=== PATIENT | male | born 1995 | race Caucasian/White ===

== ENCOUNTER 2023-09-14 18:17 | Emergency (ER) | payer OTHER, SELFPAY ==
[2023-09-14] VITALS (8 sets, daily range): BP systolic 116–146; BP diastolic 78–119
--- NOTE | 2023-09-14 18:28 | ED.GENMED ---
History of Present Illness
General
Chief Complaint: Seizure
Source: patient and family (Mother)
Exam Limitations: none
Time Seen by Provider: 09/14/23 18:18
History of Present Illness
History of Present Illness:
27-year-old male found by his mother in his room, unresponsive, frothing at the mouth. Was found on the floor. She heard a thump. He slowly became more awake over time. Patient has a remote history of 1 seizure about 4 years ago. Was on
Adderall at that time. Is currently on Xanax 2 mg twice daily. Has an appointment tomorrow to refill his prescription but has been low on meds and has been using less over the last week. He is not sure he took any Xanax today. Denies any other
complaints at this time.
Past History
Past History
ED Past Medical History: Psychiatric (Anxiety)
Review of Systems
Review of Systems
All Other Systems: Not applicable
Respiratory: Reports no symptoms
Cardiac: Reports no symptoms
Phy Exam
Physical Exam
Physical Exam:
GENERAL: Alert and oriented in no apparent distress. No signs of scalp trauma
EYE: Orbits normal.
NECK: Supple, nontender
ENT: Pharynx without erythema
CARDIAC: Tachycardic and regular no murmur
LUNGS: Clear breath sounds,normal
ABDOMEN: Soft, without focal tenderness or distention
NEUROLOGICAL: Alert and oriented , cranial nerves II through XII intact. Speech normal. Moderately tremulous
SKIN: Warm and dry, no rash or lesion, no discoloration, skin intact.
MUSCULOSKELETAL: No edema,no deformity.Good color
PSYCH: Normal and appropriate interaction.
Course
Orders/Labs/Results
Orders:
Orders
09/14/23 18:27
CT Head W/o Iv Contrast Urgent
Comment:
Reason For Exam: Seizure. Possible head injury
Cardiac Monitoring- Treatment ONCE
IV Insert/Care/Rem.- Treatment PRN
0.9% Sodium Chloride 1000 ml [Nss] 1,000 ml IV BOLUS
Lorazepam [Ativan] 1 mg IV NOW STA
Pulse Ox/cont/shift [RESP] Stat
Quantity: 1
09/14/23 18:28
Electrocardiogram (*1) Stat
Reason for Study: Other
Other Reason for Exam: neuro symptoms
EKG- Treatment ONCE
09/14/23 18:44
Basic Metabolic Panel Urgent
Complete Blood Count/With Diff Urgent
09/14/23 19:31
Alprazolam [Xanax] 2 mg PO NOW STA
Abnormal Lab Results
09/14/23 09/14/23
18:29 18:44
RBC 4.37 L 10^6/uL
(4.70-6.10)
MCV 100.5 H fL
(80.0-94.0)
MCH 37.3 H pg
(27.0-31.0)
MCHC 37.1 H g/dL
(33.0-37.0)
MPV 10.6 H fL
(7.4-10.4)
Abs Immat Gran (auto) 0.1 H 10^3/uL
(0-0.05)
Absolute Monos (auto) 0.9 H 10^3/uL
(0.1-0.6)
Immature Gran % 1.0 H %
(0-0.5)
Monocytes % 9.6 H %
(1.7-9.3)
Sodium 131 L mmol/L
(135-145)
Chloride 96 L mmol/L
(98-107)
Carbon Dioxide 17 L mmol/L
(22-30)
BUN 8 L mg/dl
(9-20)
Glucose 151 H mg/dl
(70-99)
POC Glucose 150 H mg/dl
(70-99)
09/14/23 18:44
09/14/23 18:44
Vital Signs
Initial and Last Documented VS:
Initial Vital Signs
Pulse Resp BP Pulse Ox
118 22 146/119 96
09/14/23 18:23 09/14/23 18:23 09/14/23 18:23 09/14/23 18:23
Last Documented Vital Signs
Pulse Resp BP Pulse Ox
123 25 131/92 96
09/14/23 20:15 09/14/23 20:15 09/14/23 20:00 09/14/23 20:15
MDM/Problems Addressed
Differential Diagnosis Includes:
Patient has been tapering Xanax over the last week because of prescription issues. He has been on significant doses chronically. Denies other alcohol or drug issues. Likely this was a benzodiazepine withdrawal seizure. We will check electrolytes
CT of the head because of possible trauma or unknown trauma Ativan monitoring and observation at this time
*Radiology
Radiology exam reviewed: radiology read reviewed (neg)
*Pulse Oximetry
Patient hypoxic: no
*EKG
Interpreted by ED Provider?: Yes
Interpretation: abnormal
Comparison EKG: no comparison EKG present
Heart Rate: 111
Rate: tachycardiac
Rhythm: sinus
[place]: normal axis
Interval: normal interval
QRS Pattern: normal QRS
Ischemia: no ischemia
*Manager Appointment Interpretation
Rate: tachycardiac
Interpretation: normal
Heart Rate: 110
Rhythm: sinus
*Critical Care Note
Total Time (30-74mins, 75-104mins- exclusive of procedures): Not Applicable
Update Note
Update Note:
1929... Patient doing well. Head CT negative. Mildly tachycardic but very stable. Tremors are resolved. All likely benzo withdrawal. Await labs. Continued observation. Will give him his regular dose of Xanax for now. Family updated.
2106... Patient is remained medically stable and nontoxic. Fully awake and alert. No further seizures. Heart rate improved. Blood pressure improved. Weight down to 110. I did reluctantly report this to the state however reported as a provoked
seizure because of benzo withdrawal. Patient and mom were made aware of this
ED Attending Note
-
Portions of this chart may have been created with voice recognition software.� Occasional wrong word or��sound alike� substitutions may have occurred due to the inherent limitations of voice recognition software.
Discharge Plan
Departure
Patient Disposition: Home (Routine Discharge)
Date of Disposition: 09/14/23
Time of Disposition: 21:07
Patient with high blood pressure during this ER visit?: Yes
Discharge Problem:
Seizure, Secondary to benzodiazepine withdrawal, Mild hyponatremia, Mild hyperglycemia
Instructions: Seizures, Adult (DC), BLOOD PRESSURE
Prescriptions:
No Action
alprazolam 1 mg Tablet
2 mg PO BID
Patient Comments:
09/14/2023: last filled 08/09/23, 120 tabs for 30 days from [facility]#[id number]
albuterol sulfate 90 mcg/actuation Hfa Aerosol Inhaler
2 puff INHALATION R Q4HPRN PRN (Reason: sob/wheezing)
Referrals:
UNKNOWN - PT DOES,NOT KNOW [Family Provider] -
Activity Restrictions/Additional Instructions:
Do not drive until cleared by your physician
Discussed with them tomorrow possibly a very slow taper of your Xanax and also discussed with your psychiatrist
Get a repeat BMP done in 1 to 2 weeks
Interventions
Interventions:
*Neglect/Abuse Screening Last Done: 09/14/23 18:31
ED- Cardiac Assessment Last Done: 09/14/23 18:19
ED- Neurological Assessment Last Done: 09/14/23 18:30
ED- Pulmonary Assessment Last Done: 09/14/23 18:19
Discharge Date and Time
Print Language: UKRAINIAN
[2023-09-14 18:30] LABS: Glucose - Point of Care 150 mg/dl (70-99)
[2023-09-14] MEDS: ATIVAN 1 MG IV (18:36)
[2023-09-14] MEDS: NSS 1000 IV (18:39)
[2023-09-14 19:37] LABS: % Basophils 0.9 % (0-2); % Eosinophils 1.2 % (0-6); % Monocytes 9.6 % (1.7-9.3); % Neutrophils 62.3 % (42.2-75.2); Absolute Basophils 0.1 10^3/uL (0-0.2); Absolute Eosinophils 0.1 10^3/uL (0-0.7); Absolute Immature Granulocytes 0.1 10^3/uL (0-0.05); Absolute Lymphocytes 2.3 10^3/uL (1.2-3.4); Absolute Monocytes 0.9 10^3/uL (0.1-0.6); Absolute Neutrophils 5.7 10^3/uL (1.4-6.5); Hematocrit 43.9 % (39.0-52.0); Hemoglobin 16.3 g/dL (13.0-18.0); Mean Corp Hgb Conc. 37.1 g/dL (33.0-37.0); Mean Corpuscular Hgb 37.3 pg (27.0-31.0); Mean Corpuscular Volume 100.5 fL (80.0-94.0); Mean Platelet Volume 10.6 fL (7.4-10.4); Nucleated Red Blood Cells % 0 % (-); Platelet Count 263 10^3/uL (130-400); Red Blood Cell Count 4.37 10^6/uL (4.70-6.10); White Blood Cell Count 9.2 10^3/uL (4.8-10.8)
[2023-09-14 19:40] LABS: Blood Urea Nitrogen 8 mg/dl (9-20); Calcium 9.7 mg/dl (8.4-10.2); Carbon Dioxide 17 mmol/L (22-30); Chloride 96 mmol/L (98-107); Glucose 151 mg/dl (70-99); Potassium 4.7 mmol/L (3.5-5.1); Sodium 131 mmol/L (135-145); eGFR > 60.00
[2023-09-14] MEDS: XANAX 2 MG PO (20:14)
== END 2023-09-14 21:24 | disposition home or self-care (01) ==
LOC: EMR 18:17
PROVIDERS: EMERGENCY PHYSICIAN Emergency Medicine
DX: G40.89 Other seizures (principal); F13.239 Sedative, hypnotic or anxiolytic dependence with withdrawal, unspecified; E87.1 Hypo-osmolality and hyponatremia; R73.9 Hyperglycemia, unspecified; F41.9 Anxiety disorder, unspecified; Z79.899 Other long term (current) drug therapy
CPT/HCPCS: 99284; 96374; 96361; 70450; 80048; 82962; 85025; 93005

== ENCOUNTER 2024-02-13 01:37 | Emergency (ER) | payer OTHER, SELFPAY ==
[2024-02-13 01:39] VITALS: BP 152/115
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
[2024-02-13] MEDS: ATIVAN 1 MG PO ×2 (03:27→06:19)
== END 2024-02-13 06:33 | disposition home or self-care (01) ==
LOC: EMR 01:37
PROVIDERS: EMERGENCY PHYSICIAN Student in an Organized Health Care Education/Training Program
DX: F10.129 Alcohol abuse with intoxication, unspecified (principal); R03.0 Elevated blood-pressure reading, without diagnosis of hypertension
CPT/HCPCS: 99283

== ENCOUNTER 2024-04-23 18:26 | Emergency (ER) | payer OTHER, SELFPAY ==
[2024-04-23 18:36] VITALS: BP 165/122
--- NOTE | 2024-04-23 21:59 | ED.GENMED ---
History of Present Illness
General
Chief Complaint: Prescription Refill
Source: patient
Exam Limitations: none
Time Seen by Provider: 04/23/24 19:35
Nursing documentation reviewed up to this point in time: agreed with
History of Present Illness
History of Present Illness:
Patient to ED accompanied by mother. States he is taking Xanax 1mg 4x daily for history of anxiety. He called his pharmacy today to renew rx but was told by pharmacy that pharmacy is no longer filling rx from his provider. He is concerned that he
will not be able to get medication, is concerned for withdrawal. He has 2 doses left for tomorrow.
Past History
Past History
ED Past Medical History: Psychiatric (Anxiety)
Review of Systems
Review of Systems
Allergies reviewed?: Yes
All Other Systems: ROS reviewed and negative except as documented in HPI and ROS
Constitutional: Reports no symptoms
Musculoskeletal: Reports no symptoms
Skin: Reports no symptoms
Neurological: Reports no symptoms
Psychiatric: Reports no symptoms
Phy Exam
General Physical Exam
General Presentation: well appearing and no apparent distress
General age: appears stated age
General Skin: warm and dry
General Habitus: normal
Neurological Exam
Neurological Exam: alert, oriented x3 and CN II-XII intact
Musculoskeletal Exam
Musculoskeletal Exam: full ROM
Skin Exam
Skin Exam: normal color, warm/dry and no rash
Psychiatric Exam
Psychiatric Exam: normal mood/affect
Course
Vital Signs
Initial and Last Documented VS:
Initial Vital Signs
Temp Pulse Resp BP Pulse Ox
98.4 F 106 16 165/122 97
04/23/24 18:36 04/23/24 18:36 04/23/24 18:36 04/23/24 18:36 04/23/24 18:36
Last Documented Vital Signs
Temp Pulse Resp BP Pulse Ox
98.4 F 106 16 165/122 97
04/23/24 18:36 04/23/24 18:36 04/23/24 18:36 04/23/24 18:36 04/23/24 18:36
*Critical Care Note
Total Time (30-74mins, 75-104mins- exclusive of procedures): Not Applicable
Update Note
Update Note:
Discussed with mother on need to follow up with his prescribing provider, and that i will not be able to refill his rx from the ED. He will call provider in AM. I gave rx for 4 additional doses.
ED Attending Note
-
Portions of this chart may have been created with voice recognition software.� Occasional wrong word or��sound alike� substitutions may have occurred due to the inherent limitations of voice recognition software.
Discharge Plan
Departure
Patient Disposition: Home (Routine Discharge)
Date of Disposition: 04/23/24
Time of Disposition: 19:52
Patient with high blood pressure during this ER visit?: No
Condition: Good
Covid-19: Not Applicable
Discharge Problem:
Encounter for medication refill
Prescriptions:
New
alprazolam [Xanax] 1 mg tablet
1 mg PO TID PRN (Reason: anxiety) Qty: 4 0RF
No Action
alprazolam 1 mg Tablet
2 mg PO BID
Patient Comments:
09/14/2023: last filled 08/09/23, 120 tabs for 30 days from [id number]
albuterol sulfate 90 mcg/actuation Hfa Aerosol Inhaler
2 puff INHALATION R Q4HPRN PRN (Reason: sob/wheezing)
lorazepam [Ativan] 1 mg tablet
1 mg PO BID PRN (Reason: alcohol withdrawal) Qty: 7 0RF
Activity Restrictions/Additional Instructions:
Follow up with your healthcare provider in the AM
Interventions
Interventions:
*Risk Screen - Suicide Last Done: 04/23/24 20:01
*Neglect/Abuse Screening Last Done: 04/23/24 20:01
*Nursing Disposition Last Done: 04/23/24 20:01
Discharge Date and Time
Discharge Date/Time: 04/23/24 20:02
Print Language: HEBREW
== END 2024-04-23 20:02 | disposition home or self-care (01) ==
LOC: EMR 18:26
PROVIDERS: EMERGENCY PHYSICIAN Emergency Medicine
DX: Z76.0 Encounter for issue of repeat prescription (principal); F41.9 Anxiety disorder, unspecified; Z79.899 Other long term (current) drug therapy
CPT/HCPCS: 99282

== ENCOUNTER 2024-10-07 23:51 | Inpatient (IN) | payer OTHER, SELFPAY ==
[2024-10-07] VITALS (11 sets, daily range): BP systolic 109–235; BP diastolic 79–164; BMI 30.5
[2024-10-07 20:19] LABS: Hematocrit 43.3 % (39.0-52.0); Hemoglobin 15.7 g/dL (13.0-18.0); Mean Corp Hgb Conc. 36.3 g/dL (33.0-37.0); Mean Corpuscular Volume 101.9 fL (80.0-94.0); Nucleated Red Blood Cells % 0 % (-); Platelet Count 249 10^3/uL (130-400); Red Cell Dist. Width 12.8 % (11.5-14.5)
[2024-10-07 20:45] LABS: AST (SGOT) 231 U/L (17-59); Albumin 5.1 g/dl (3.5-5.0); Alkaline Phosphatase 67 U/L (38-126); Blood Urea Nitrogen 9 mg/dl (9-20); Calcium 9.2 mg/dl (8.4-10.2); Carbon Dioxide 16 mmol/L (22-30); Chloride 93 mmol/L (98-107); Estimated Creatinine Clearance > 125 ml/min; Glucose 168 mg/dl (70-99); Potassium 4.6 mmol/L (3.5-5.1); Sodium 128 mmol/L (135-145); Total Protein 8.7 g/dl (6.3-8.2); eGFR > 60.00
[2024-10-07] MEDS: VALIUM INJECTION 10 MG IV ×2 (20:56→23:10)
[2024-10-07] MEDS: NSS 1000 IV (20:57)
[2024-10-07 21:16] LABS: ALT (SGPT) 102 U/L (0-50)
[2024-10-07 21:59] LABS: Magnesium 1.1 mg/dl (1.6-2.3)
--- NOTE | 2024-10-07 22:23 | ED.GENMED ---
History of Present Illness
General
Chief Complaint: Seizure
Source: patient and family (Mom who is present at the bedside)
Exam Limitations: none
Time Seen by Provider: 10/07/24 22:05
History of Present Illness
History of Present Illness:
Note:
CHIEF COMPLAINT(S)
Seizure following alcohol withdrawal.
HISTORY OF PRESENT ILLNESS
The patient is a 28-year-old male who presented to the emergency department after experiencing a seizure attributed to alcohol withdrawal. The patient has a history of heavy alcohol use, with the last consumption occurring three days prior.
According to the patients mother, the patient had a seizure in the bathroom at approximately 8:00 PM after she heard a crash and found him on the floor. The patient has a history of previous seizures following similar heavy alcohol use about a year
ago. During the current episode, the patients heart rate was reported to be 160 beats per minute. The patient did not sustain significant injury during the seizure, aside from likely biting his tongue.
The patient has not been receiving regular treatment for alcohol use disorder and is resistant to receiving help. His mother expresses significant concern about his health and is unsure how to provide support. The patient is presently experiencing
electrolyte imbalances, particularly low sodium levels, which require correction via intravenous fluids and magnesium supplementation. There is significant concern regarding the risk of recurrent seizures and potential cardiac complications if
further medical intervention is not promptly initiated.
CHRONIC MEDICAL CONDITIONS SIGNIFICANTLY AFFECTING CARE
Chronic alcohol use disorder with associated risk for withdrawal seizures.
SOCIAL DETERMINANTS AFFECTING HEALTH
The patient lives with his mother who feels overwhelmed by his alcohol dependence and is unable to provide necessary support to help him manage his condition safely.
SOCIAL HISTORY
The patient is a heavy alcohol consumer and has been for an extended period. There is no discussion of other substance use. The patient works at [employer].
PHYSICAL EXAM
General: Alert, anxious, in moderate distress secondary to withdrawal symptoms.
Skin: Warm, dry. No signs of trauma.
Head: Normocephalic, atraumatic. Likely bit the tongue during the seizure.
Neck: Supple, trachea midline.
Eye, Ears, Nose, Mouth, and Throat: Oral mucosa moist.
Cardiovascular: Tachycardic noted initially with heart rate at 160 beats per minute, normal peripheral perfusion.
Respiratory: Respirations are non-labored.
Gastrointestinal: Abdomen nondistended.
Back: Normal range of motion, normal alignment.
Musculoskeletal: Normal range of motion, normal strength.
Neurological: Alert and oriented to person, place, time, and situation. No focal neurological deficit observed post-seizure.
Psychiatric: Anxious mood, appropriate affect given the situation. Cooperative during the exam.
PLAN
1. Admit the patient for inpatient management of alcohol withdrawal to prevent further seizures and correct electrolyte imbalances.
2. Initiate intravenous fluids with magnesium and sodium to address electrolyte imbalances.
3. Discuss inpatient detoxification and rehabilitation options.
4. Provide education about the risks associated with unmanaged alcohol withdrawal.
5. Engage social work and crisis intervention team for support and potential referral to alcohol addiction services.
6. Observe patient closely due to the high risk of subsequent seizures and potential cardiac events.
7. The patient cannot be discharged alone due to recent administration of benzodiazepines; medical hold until safely discharged with a responsible adult.
8. Monitor vital signs and neurological status closely.
DIFFERENTIAL DIAGNOSIS
The Differential Diagnosis includes, in no particular order and is not limited to:
1. Alcohol withdrawal seizure
2. Epileptic seizure
3. Hypoglycemic seizure
4. Electrolyte imbalance seizure
5. Infection-related seizure
6. Trauma-induced seizure
7. Drug-induced seizure (non-alcohol substances)
8. Tumor-related seizure
9. Intracranial bleed
10. Stress-related non-epileptic seizure
EKG
My independent EKG interpretation is:
- Time of EKG is not specified.
- Rhythm: Sinus tachycardia.
- Heart rate: 128 beats per minute.
- Intervals: Normal OR interval, QRS duration, and QT interval.
- [place]: Normal axis.
- Abnormalities: No evidence of acute ischemia.
- Comparison: Similar morphology to previous EKG dated September 14, 2011.
Disposition:
SUMMARY OF ENCOUNTER
The patient, a 28-year-old male with a history of alcoholism, presented to the emergency department after experiencing a seizure at home. The seizure occurred three days after the patient stopped drinking alcohol in an attempt to detoxify on his
own. The patients mother, found him seizing shortly after arriving home from work. The patient confirmed not having a head injury and reported using alprazolam to help mitigate withdrawal symptoms. Upon arrival at the emergency department, the
patient received multiple doses of diazepam, and seizure precautions were established due to his high Modified Severity Seizure Scale (DAMON) score. -[facility] was contacted but was unavailable until 7 a.m. The patient is resistant to seeking help for
his alcoholism but agreed to be admitted to the hospitalist service for management of withdrawal symptoms, seizures, hypomagnesemia, and hyponatremia.
DISPOSITION
Admit
ASSESSMENT
Seizure likely attributed to alcohol withdrawal, compounded by underlying electrolyte imbalances of hypomagnesemia and hyponatremia.
EMERGENCY TREATMENTS ADMINISTERED
Multiple doses of diazepam were administered to manage the patient�s seizure activity.
PLAN
1. Admit the patient to the hospitalist service for inpatient management of alcohol withdrawal and seizure control.
2. Correct electrolyte imbalances, including addressing hypomagnesemia and hyponatremia, with appropriate intravascular supplementation.
3. Implement seizure precautions and closely monitor neurological status.
4. Facilitate discussions with the social work team regarding potential placement and follow-up services for alcohol withdrawal and rehabilitation once the patient is medically stabilized.
5. Provide continued support and address the patients reluctance to engage in treatment for alcohol use disorder.
MEDICATION RECONCILIATION
1. Alprazolam as reported by the patient to mitigate withdrawal symptoms.
2. Diazepam was administered in the emergency department for seizure management.
MEDICAL DECISION MAKING
-Number and Complexity of Problems Addressed: Chronic conditions affecting care�Chronic alcohol use disorder, alcohol withdrawal, hypomagnesemia, hyponatremia. Differential diagnosis includes alcohol withdrawal seizure, epileptic seizure,
hypoglycemic seizure, and others as detailed.
-Data:
Category 2
Input was provided by the patients mother as an independent historian regarding the circumstances of the seizure and the patient�s recent alcohol use history.
Category 3
Contact with -[facility] for potential follow-up placement and rehabilitation options, although initially unavailable.
-Risk: The patient was admitted due to the significant risk of complications associated with continued alcohol withdrawal, electrolyte imbalances, and potential for further seizures. Social determinants of health significantly affecting care, as the
patients current living situation and reluctance to seek help pose barriers to effective management and continued stability post-discharge.
DIAGNOSIS
- Alcohol withdrawal seizure (ICD-10: F10.232)
- Hypomagnesemia (ICD-10: E61.2)
- Hyponatremia (ICD-10: E87.1)
Past History
Past History
ED Past Medical History: Psychiatric (Anxiety)
Phy Exam
Physical Exam
Physical Exam:
.
Scores
Withdrawal Assessment of Alcohol
Withdrawal Assessment Completed?: Yes
Nausea and Vomiting: Mild nausea with no vomiting
Tactile Disturbances: Very mild itching, pins and needles, burning or numbness
Tremor: Moderate, with patient's arms extended
Auditory Disturbances: Not present
Paroxysmal Sweats: Beads of sweat obvious on forehead
Visual Disturbances: Not present
Anxiety: Moderately anxious, or guarded, so anxiety is inferred
Headache, Fullness in Head: Not present
Agitation: Moderately fidgety and restless
Orientation and clouding of sensorium: Cannot do serial additions or is uncertain about date
Total CIWA Score: 19
Alcohol Withdrawal Medication Recommendation: Equal to MSAS Score 8-11. Lorazepam 1-2mg IV NOW & re-assess q1hr
Course
Orders/Labs/Results
Orders:
Orders
10/07/24 20:13
EKG [Electrocardiogram (*1)] Urgent
Reason for Study: Tachycardia
EKG- Treatment ONCE
10/07/24 20:14
Alcohol Urgent
Complete Blood Count/With Diff Routine
Comprehensive Metabolic Panel Urgent
Magnesium Urgent
Comment: ADD ON
Phosphorus Urgent
Comment: ADD ON
10/07/24 20:52
diazePAM [Valium Injection] 10 mg .ROUTE .STK-MED ONE
10/07/24 20:53
diazePAM [Valium Injection] 10 mg IM NOW STA
10/07/24 20:55
diazePAM [Valium Injection] 10 mg IV NOW STA
10/07/24 20:57
0.9% Sodium Chloride 1000 ml [Nss] 1,000 ml IV BOLUS
10/07/24 21:46
Add On- LAB Urgent
Comments:: add on magnesium and phosphorous to comp
Tests Added?: magnesium and phosphorous to comp
10/07/24 22:10
0.9% Sodium Chloride 500 ml [Nss] 500 ml IV BOLUS
Magnesium Sulfate 1 G/D5w [Magnesium Sulfate] 1 gm in 100 ml IV NOW
10/07/24 23:00
0.9% Sodium Chloride 1000 ml [Nss] 1,000 ml Mvi, Adult [Multivitamin] 10 ml Thiamine Injection 100 mg IV 250 mls/hr
10/07/24 23:03
diazePAM [Valium Injection] 10 mg .ROUTE .STK-MED ONE
10/07/24 23:07
Admit/Transfer Patient As Directed
Co-Sign Provider:
Level of Care: Inpatient admission
Assign to:: ICU
Physician / Group: Frandy
Diagnosis: Alcohol Withdrawal Seizures
Reason for Hospitalization: Alcohol Withdrawal Seizures
Expected length of stay greater than two midnights?: Yes
ELOS- Estimated Length of Stay in days: 4
I certify the patient meets the requirements for IP care: Yes
PRN Pain Medication Management As Directed
May give lesser potent ordered pain med per pt: Yes
preference::
Protocol:: Medication orders for pain may be administered in a
manner that supports deferring to patient preference
when the pt is:
- Requesting an ordered lesser potent pain medication.
Least to most potent pain medications are defined
as: acetaminophen < NSAID < tramadol < opioids
(morphine, oxycodone, hydromorphone).
- Requesting a lesser dose of the same medication IF
ORDERED.
- Requesting a less intrusive route of administration
if both routes are prescribed by the provider (PO <
IV).
10/07/24 23:08
Code Status As Directed
Resuscitation Status: Full Code
10/07/24 23:18
Propofol 1,000,000 Mcg/100 ml [Diprivan] 1,000,000 mcg in 100 ml .ROUTE .STK-MED
10/07/24 23:26
CT Head W/o Iv Contrast Urgent
Comment:
Reason For Exam: persistant seizure
CR Chest Portable - 1 View Urgent
Comment:
Reason For Exam: tube placement
Reason Study Needs to be Portable: Unable to Transport
10/07/24 23:31
Triglycerides Routine
Comment: baseline levels with propofol infusion
Propofol 1,000,000 Mcg/100 ml [Diprivan] 1,000,000 mcg in 100 ml IV NOW
Indication:: Light Sedation
Begin Infusion:: Now
Goal:: RASS 0 to -2
Maximum dose in mcg/kg/min:: 50
Initial dose based on RASS:: Yes
If RASS is:: +1 or pt hemodynamically unstable (SBP < 90mmHg), initiate at 10 mcg/kg/min
If RASS is:: +2, initiate at 20 mcg/kg/min
If RASS is:: greater than or equal to +3, initiate at 30 mcg/kg/min
Titration Instructions:: Titrate by 5-10 mcg/kg/min every 5 minutes until RASS 0 to -2 achieved.
Taper Instructions:: If RASS is at or below goal for 4 consecutive hours decrease infusion by
Taper Instructions:: 5-10 mcg/kg/min every 2 hours to off.
Over-sedation Instructions:: If CPOT 0-2 (at goal) AND RASS -3 to -5 (below goal) decrease sedative by
Over-sedation Instructions:: 50% first. If pain score remains at goal and RASS remains below goal in
Over-sedation Instructions:: 1 hour, decrease opioid infusion by 50%.
Notify provider:: immediately if patient exhibits signs/symptoms of propofol-related
Notify provider:: infusion syndrome.
Additional Instructions:: Patient MUST be mechanically ventilated and MUST receive analgesia.
10/07/24 23:37
ABG [Arterial Blood Gas] Urgent
%Oxygen/Room Air: intubated
10/07/24 23:38
Khan Placement- Treatment ONCE
Reason for insertion: I&O's Critical Care
Abnormal Lab Results
10/07/24
20:14
RBC 4.25 L 10^6/uL
(4.70-6.10)
MCV 101.9 H fL
(80.0-94.0)
MCH 36.9 H pg
(27.0-31.0)
Absolute Monos (auto) 0.8 H 10^3/uL
(0.1-0.6)
Monocytes % 12.1 H %
(1.7-9.3)
Sodium 128 L mmol/L
(135-145)
Chloride 93 L mmol/L
(98-107)
Carbon Dioxide 16 L mmol/L
(22-30)
Glucose 168 H mg/dl
(70-99)
Magnesium 1.1 L mg/dl
(1.6-2.3)
Total Bilirubin 3.1 H mg/dl
(0.2-1.3)
AST 231 H U/L
(17-59)
ALT 102 H U/L
(0-50)
Total Protein 8.7 H g/dl
(6.3-8.2)
Albumin 5.1 H g/dl
(3.5-5.0)
10/07/24 20:14
10/07/24 20:14
Vital Signs
Initial and Last Documented VS:
Initial Vital Signs
BP
146/99
10/07/24 20:10
Last Documented Vital Signs
Pulse Resp BP Pulse Ox
106 19 136/98 96
10/07/24 22:45 10/07/24 22:45 10/07/24 22:00 10/07/24 22:45
Procedures
Moderate Sedation
ASA Risk Score: Class I
Chart and allergies reviewed: Yes
Consent for anesthesia obtained: No
Time out completed (validating right patient & procedure): Yes
History of difficult intubation: No
Airway free of obstruction: Yes
Patient has a gag reflex: Yes
Patient is able to open mouth: Yes
Patient has no dentures: Yes
Patient has no loose teeth: Yes
Medication administered by Provider during Moderate Sedation: N/A-Meds administered by RN (see MAR)
Intubations
Procedure completed by: myself
Method of Intubation: glidescope
Tube size (cm): 8.0
Placement confirmed by: auscutation, CXR and direct visualization
Breath sounds after intubation: equal
Intubation complications: no complications
*Pulse Oximetry
SaO2: 98
Oxygen Mode of Delivery: Room air
Patient hypoxic: no
*Critical Care Note
Total Time (30-74mins, 75-104mins- exclusive of procedures): 37 (Critical care statement: A total of 37 minutes of critical care time was provided for this patient. This time is separate from time utilized to perform the aforementioned documented
procedures. Aggregate critical care time includes only time during which I was engaged in work directl)
Update Note
Update Note:
[facility] was contacted and we were told they would not have anyone available until morning
11:15 PM: Pt seized again. Seizure refractory to meds. Decision to intubate in presence of mom who verbally consented. Intubation successful, propofol drip initiated
ED Attending Note
-
Portions of this chart may have been created with voice recognition software.� Occasional wrong word or��sound alike� substitutions may have occurred due to the inherent limitations of voice recognition software.
Discharge Plan
Departure
Patient Disposition: Admit
Date of Disposition: 10/07/24
Time of Disposition: 22:51
Admit to: ICU
Presentation/result/management discussed w/ accepting MD/DO: Hospitalist
Condition: Critical
Discharge Problem:
Alcohol withdrawal, Seizures, Acute hyponatremia, Hypomagnesemia, Status epilepticus
Prescriptions:
No Action
alprazolam [Xanax] 1 mg tablet
1 mg PO TID PRN (Reason: anxiety) Qty: 4 0RF
Referrals:
TYLER LAUGHLIN [Other]
Interventions
Interventions:
*Risk Screen - Suicide Last Done: 10/07/24 20:20
*General Assessment Last Done: 10/07/24 20:20
*Neglect/Abuse Screening Last Done: 10/07/24 20:20
*ED- Fall Risk Assessment Last Done: 10/07/24 20:20
*ED COVID-19 Vaccine History Last Done: 10/07/24 20:20
ED- Cardiac Assessment Last Done: 10/07/24 20:41
ED- Neurological Assessment Last Done: 10/07/24 20:41
ED- Pulmonary Assessment Last Done: 10/07/24 20:41
Discharge Date and Time
Print Language: KAZAKH
[2024-10-07] MEDS: MAGNESIUM SULFATE 100 IV (22:54)
[2024-10-07] MEDS: MULTIVITAMIN 1011 ML IV (23:15)
[2024-10-07] MEDS: MULTIVITAMIN 1011 MG IV (23:15)
--- NOTE | 2024-10-07 23:36 | HPS.HSE ---
Family Physician
-
Family Physician: TYLER LAUGHLIN
Chief Complaint
-
Seizure
History of Present Illness
Patient is a 28y M with PMH significant for alcohol use disorder and chronic benzodiazepine dependence who presents to ED for evaluation after witnessed seizure at home this evening. History obtained from patient and his mother at the bedside.
Patient states that he has been on Xanax 1mg QID for 5-10 years. He has also been drinking to excess - especially for the past year or so. He drinks about 3/4 bottle of vodka per day. His last drink was 2 days ago. He states that he is committed
to quitting 'on my own'. He notes that he has also been weaning off of his Xanax. He has decreased from his long-standing QID dosing to two or three times daily.
During my evaluation, patient experienced another tonic-clonic seizure with evident mucosal / tongue injury and bloody secretions from the mouth. He was given IV Valium.
Discussion with ED physician and mother at bedside. Decision made to intubate and sedate the patient given recurrent seizure activity despite BZDs received thus far.
Medical History
Past Medical History
Past Medical History: Reports Other
Additional Past Medical History:
Alcohol Use Disorder
Chronic Benzodiazepine Dependence
Anxiety / Depression
Past Surgical History: Reports None
Social History
Tobacco: Non-smoker
Alcohol: Daily (3/4 bottle of vodka daily. )
Drug: None
Family History
Family History: Not pertinent
Allergies / Home Medications
Allergies reflects when Allergies were last updated in [facility].
Home Medications with original date entered in [facility]
Allergy/Medication List:
Allergies
Allergy/AdvReac Type Severity Reaction Status Date / Time
No Known Allergies Allergy Verified 10/07/24 20:26
Home Medications
alprazolam 1 mg tablet (Xanax) 1 mg PO TID PRN anxiety #4 tabs 04/23/24
Review of Systems
-
History Source: Patient
A 12 point ROS was completed and negative except as noted: Yes
Constitutional: Reports Fatigue; Denies Fever or Chills
Respiratory: Denies Cough or Trouble Breathing
Cardiac: Denies Chest Pain or Palpitations
Abdomen/GI: Denies Abdominal Pain, Nausea, Vomiting or Diarrhea
Neurological: Reports Other (Seizure, tremulous)
Psych: Reports Anxiety
Physical Exam
Vital Signs
Vital Signs
Pulse Resp BP Pulse Ox
106 19 136/98 96
10/07/24 22:45 10/07/24 22:45 10/07/24 22:00 10/07/24 22:45
Physical Exam
General: Other (Patient initially awake and alert and able to contribute to history. Then developed active seizure. Now intubated / sedated in the ED.)
HEENT: Other (Thick neck. ETT and OGT in place. Few bloody secretions / tongue laceration.)
Respiratory: Other (Coarse breath sounds throughout.)
Cardiac: S1/S2 and Tachycardia; No Murmur
GI: Soft, Non Tender, Non Distended and Normal Bowel Sounds
Musculoskeletal: No Clubbing, No Cyanosis and No Edema
Laboratory Results
-
10/07/24 20:14
10/07/24 20:14
Laboratory Results
Total Bilirubin 3.1 mg/dl (0.2-1.3) H 10/07/24 20:14
AST 231 U/L (17-59) H 10/07/24 20:14
ALT 102 U/L (0-50) H 10/07/24 20:14
Alkaline Phosphatase 67 U/L (38-126) 10/07/24 20:14
Impression/Plan
-
A/P: Patient is a 28y M with PMH significant for alcohol use disorder and chronic BZD dependence who presents to ED for evaluation of seizure activity at home,
Alcohol Withdrawal Seizure
Alcohol Use Disorder
Chronic Benzodiazepine Dependence
- Admit to ICU for further evaluation and treatment.
- Seizure at home and multiple seizures here in the ED despite IV BZD doses.
- Intubated and started on Propofol infusion.
- Monitor closely in ICU on Propofol.
- BZD PRN for breakthrough seizure activity.
- Check CT head for completeness.
- Sterile Processing Manager and Psychiatry consulted.
- IVF support / monitor and replace electrolytes as needed.
- Thiamine, folate, MVI, etc.
- Patient would likely benefit from inpatient rehabilitation options if he is amenable.
Aspiration
- Coarse breath sounds on exam in the ED after most recent seizure with suspected aspiration.
- Cover with empiric abx for now.
- Follow temperature curve, oxygenation, CXR, etc.
DVT Prophylaxis: SCDs
Code Status: Full
[2024-10-07] MEDS: DIPRIVAN 100 IV (23:40)
[2024-10-07 23:51] LABS: Glucose - Point of Care 188 mg/dl (70-99)
[2024-10-07 23:58] LABS: B.E. -5.5 mmol/L; HCO3 22.0 mmol/L (21-28); O2 Saturation % 98.7 % (94-98); PCO2 49 mmHg (35-48); PO2 111 mmHg (83-108)
[2024-10-08] VITALS (95 sets, daily range): BP systolic 81–210; BP diastolic 46–142; BMI 30.8
[2024-10-08] MEDS: SUBLIMAZE 100 MCG IV (00:53)
[2024-10-08 00:59] LABS: Triglycerides 213 mg/dl (10-149)
[2024-10-08] MEDS: SUBLIMAZE 50 MCG IV ×8 (01:23→16:25)
[2024-10-08] MEDS: SUBLIMAZE 100 IV ×3 (01:32→19:12)
[2024-10-08] MEDS: ATIVAN 2 MG IV (01:46)
[2024-10-08 01:48] LABS: Hematocrit 45.1 % (39.0-52.0); Hemoglobin 16.4 g/dL (13.0-18.0); Mean Corp Hgb Conc. 36.4 g/dL (33.0-37.0); Mean Corpuscular Volume 102.7 fL (80.0-94.0); Platelet Count 226 10^3/uL (130-400); Red Cell Dist. Width 12.3 % (11.5-14.5); Urine Character Clear (Clear)
[2024-10-08] MEDS: LR 1000 IV ×4 (01:52→20:22)
[2024-10-08] MEDS: VERSED 5 MG IV ×4 (01:55→05:08)
[2024-10-08 02:05] LABS: INR 1.14; PT 14.9 Sec (11.4-14.6)
[2024-10-08 02:06] LABS: APTT 24.9 Sec (23.4-35.0)
[2024-10-08 02:11] LABS: Triglycerides 316 mg/dl (10-149)
[2024-10-08 02:17] LABS: ALT (SGPT) 103 U/L (0-50); AST (SGOT) 245 U/L (17-59); Albumin 5.0 g/dl (3.5-5.0); Alkaline Phosphatase 66 U/L (38-126); Blood Urea Nitrogen 8 mg/dl (9-20); Calcium 8.4 mg/dl (8.4-10.2); Carbon Dioxide 22 mmol/L (22-30); Chloride 97 mmol/L (98-107); Estimated Creatinine Clearance > 125 ml/min; Glucose 159 mg/dl (70-99); Magnesium 1.7 mg/dl (1.6-2.3); Potassium 4.2 mmol/L (3.5-5.1); Sodium 133 mmol/L (135-145); Total Protein 8.5 g/dl (6.3-8.2); Urine Squamous Cell >30 /LPF (Few); Urine Urothelial Cell >30 /LPF (FEW); eGFR > 60.00
[2024-10-08 02:19] LABS: Urine Red Blood Cell 16-20 /HPF (0-2)
--- NOTE | 2024-10-08 02:27 | W.PN.UPDATE ---
Update Note
Progress Note Update
spoke with Lilibeth Leonard - patient admitted for witnessed seizure in the setting of ETOH and BZD dependence and concern for withdrawal
Serene reviewed, when the tracing began 12:27 am there is right frontal seizure consisting of rhythmic delta 2.5-3 hz lasting until ~12:38 am. since then his eeg tracing has looked good. i do not agree with seizures where [facility] is detecting
them.
[2024-10-08] MEDS: MAGNESIUM SULFATE 102 GRAMS IV (02:49)
[2024-10-08] MEDS: THIAMINE INJECTION 200 MG IV ×3 (02:52→16:13)
[2024-10-08] MEDS: DIPRIVAN 100 IV ×4 (03:19→23:08)
[2024-10-08] MEDS: VALIUM INJECTION 10 MG IV ×4 (03:21→13:30)
[2024-10-08] MEDS: FLAGYL 500 MG 100 IV (04:00)
[2024-10-08] MEDS: ROCEPHIN 1000 MG IV (04:30)
[2024-10-08 05:13] LABS: Glucose - Point of Care 70 mg/dl (70-99)
[2024-10-08 05:59] LABS: Hematocrit 37.8 % (39.0-52.0); Hemoglobin 13.7 g/dL (13.0-18.0); Mean Corp Hgb Conc. 36.2 g/dL (33.0-37.0); Mean Corpuscular Volume 102.2 fL (80.0-94.0); Platelet Count 210 10^3/uL (130-400); Red Cell Dist. Width 12.8 % (11.5-14.5)
--- NOTE | 2024-10-08 06:06 | PTCARENOTE ---
on arrival to the unit pt very agitated and restless, attempting to pull at tube, PRN meds given see ZANA, SENIOR QUALITY MANAGER at bedside to assess pt, pt diaphoretic, BP elevated and HR in the 140s, intubated in ED, loya, ceribell, and OGT placed in ED, pt
currently on PROP gtt, FENT gtt, and IVF. PRN meds given for increased agitation, see MAR
[2024-10-08 06:21] LABS: Blood Urea Nitrogen 8 mg/dl (9-20); Calcium 8.0 mg/dl (8.4-10.2); Carbon Dioxide 23 mmol/L (22-30); Chloride 101 mmol/L (98-107); Estimated Creatinine Clearance > 125 ml/min; Glucose 83 mg/dl (70-99); Potassium 3.7 mmol/L (3.5-5.1); Sodium 132 mmol/L (135-145); eGFR > 60.00
--- NOTE | 2024-10-08 07:16 | CON.INTV ---
Consultation
Consultation Request
Date/Time Consultation Requested: 10/08
Date/Time Consultation Performed: 10/08
Reason for Consultation: Critical care
Medical History
-
History of Present Illness:
History obtained from the chart and also obtained from the mother at the bedside. Patient is a 28-year-old male with history of significant alcohol abuse. Mother states that patient drinks about a pint of vodka a day. The mother has to buy the
alcohol for him. When she does not buy for him in efforts to decrease alcohol, he becomes difficult to deal with at home. At 1 point, he had a seizure back in 2023, EMS was called and patient refused to go to the emergency room. Last drink was
night. Patient apparently fell, mother noted patient on the ground. Possible seizure noted at around 8 PM. Patient was brought to [facility] where upon arrival, blood pressure 146/99. Patient received multiple doses of
diazepam, eventually required intubation for airway protection, witnessed tonic-clonic seizure with tongue injury and bloody secretions in the ED. Patient mated for further management 10/07/2024
According to mother, patient takes Xanax 1 mg 1-4 times a day. He drinks about three quarters of a bottle of vodka a day. He also vapes occasionally. No other drug use.
.
PMH: Alcohol use disorder, chronic benzodiazepine use, history of anxiety/depression, history of seizure in the past and withdrawal from alcohol
Past Medical History
Past Medical History: None (See above)
Past Surgical History: None ( see above)
Social History
Tobacco: Vaping
Alcohol: Daily (Three quarters to a full bottle of vodka a day)
Drug: None
Personal: Single
Living: With Family (Lives with mother)
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
Family History
Family History: Other (2 brothers healthy. Father at age 49 from lung cancer. Grandfather from lung cancer as well)
Allergies / Home Medications
Allergies
Allergy/AdvReac Type Severity Reaction Status Date / Time
No Known Allergies Allergy Verified 10/07/24 20:26
Home Medications
�Medication �Instructions �Recorded �Confirmed �Last Taken �Type
alprazolam 1 mg tablet (Xanax) 1 mg PO TID PRN anxiety #4 tabs 04/23/24 10/07/24 10/07/24 Rx
0900
Review of Systems
-
All other systems: Negative unless noted
Vitals / Labs / Diagnostic Testing
Vital Signs
Temp Pulse Resp BP Pulse Ox
98.7 F 104 18 117/68 98
10/08/24 01:18 10/08/24 06:00 10/08/24 06:00 10/08/24 06:00 10/08/24 06:00
Lab Data
10/08/24 05:50
Laboratory Results
10/07/24 10/08/24
23:52 01:40
PT 14.9 H
INR 1.14
APTT 24.9
pH 7.26 L
pCO2 49 H
pO2 111 H
HCO3 22.0
O2 Delivery Level
Diagnostic Testing:
Physical Exam
-
HEENT: Normocephalic and Anicteric (Mild icterus)
Cardiovascular: S1/S2, Regular Rhythm, Murmur ( n), Rub (n) and Peripheral Edema (n)
Respiratory: Wheeze (n), Rales (n), Rhonchi (few), Non-Labored Respirations and Other (ET tube)
GI: Soft, Non Distended and Non Tender
Neurology: Other (Sedated. Spontaneously opens eyes. Spontaneously moves all extremities when aroused)
Skin: Good Color (No rash)
General: Comfortable
Assessment
-
28-year-old male with alcohol use disorder daily bottle of vodka, last drink , presents with seizures, witnessed in the ED, tongue injury, required intubation, admitted to ICU for further management
Acute alcohol withdrawal
Seizures, with tongue injury, fall at home
Head CT without acute findings
Tox screen positive for benzos, marijuana, negative alcohol
VDRF, intubated 10/07 in ED for airway protection
Mild hyponatremia
Acute transaminitis
Elevated total bilirubin 3.8
Abnormal UA
Daily alcohol, 3 quarter bottle of vodka
Family history of lung cancer (father, grandfather)
Depression/anxiety
According to mother, depressed since loss of father 15 years ago
Plan/recommendations
At this time, patient remains critically ill
Reviewed with neurology. Seizure activity noted around 12:27 AM, none since
Currently on sedation, propofol/fentanyl
Will start Precedex
Continue thiamine/folic acid
No seizures since around 12:30 AM
Valium as needed
Recent MSAS 11
May require initiation of phenobarbital drip
Currently on volume-cycled ventilation
AC 18/550/5/40%
Ppk 22, Pplat 15
Decreased lung volumes on x-ray
Chest x-ray and ABG in the a.m.
Follow electrolytes
EKG sinus tachycardia T wave inversion inferiorly, no change compared to EKG 2023
Presently empirically on ceftriaxone/Flagyl for possible aspiration event
Daily chest x-ray for now
ABG in the a.m.
Patient apparently has had similar withdrawal symptoms a year ago, did not drink for 12 days, developed seizures at home, EMS called, patient refused transport to the hospital
Mother has been dealing with balancing behavior without alcohol and behavior with alcohol, under significant stress at home
Mother is distressed. States that patient has been drinking daily alcohol since the loss of his father at the age of 14
GI prophylaxis: Protonix
DVT prophylaxis: Sequential teds, will consider adding pharmacological prophylaxis 10/09, as I doubt patient will be liberated from the ventilator in the next 24 hours
Reviewed with critical care nursing, respiratory care
Reviewed with mother at length at bedside
Reviewed with primary service, neurology
TCCT 35 min
[2024-10-08] MEDS: NSS (PRESERVATIVE FREE) 10 ML IV (09:02)
[2024-10-08] MEDS: PROTONIX IV 40 MG IV (09:02)
[2024-10-08] MEDS: FOLVITE PO (09:03)
--- NOTE | 2024-10-08 09:05 | PTCARENOTE ---
Assumed care of pt at 0715 following shift report. Pt received intubated and on vent at ordered settings. Ceribel monitoring in use - see worklist intervention documentation. Bilateral soft wrist restraints in use to protect lines/tubing. Fentanyl,
Propofol and IVF infusing as documented. OGT in place to Rt nare at 65cm- clamped. Placement confirmed w/ consistent marking on tube and auscultation of air bolus. Khan patent and draining clear orange urine. Physical assessment completed as
documented. Pt opens eyes to name and very quickly becomes agitated, attempting to grab ETT, pulling on restraints and aggressively banging fists on side rails of bed. Pt flushed and diaphoretic with notable tremors. MSAS= 11. Valium administered as
documented in APR. Dr Castro aware and Precedex gtt started per order. No plans to extubate today. Mother to bedside to see pt- updated on pt's present condition, plan of care, questions answered. Dr Leiva to bedside to evaluate pt- no plans to remove
Ceribel today. Will continue to monitor closely.
[2024-10-08] MEDS: PRECEDEX 100 IV ×3 (09:11→20:22)
--- NOTE | 2024-10-08 09:17 | CON.NEURO ---
Neuro Assessment/Plan
Assessment
28 year old man with in alcohol/BZD withdrawal presenting with a seizure cluster, status epilepticus in the form of seizure lasting >5 minutes on EEG
since the initial EEG sz 12:27-12:38 am, no further sz
there is no role for AEDs in this situation, management consists of long acting BZDs with taper, and I agree with Valium IV and starting precedex as he remains with severe withdrawal symptoms
maintain Ceribell as it is presently difficult to clinically determine sedation vs nonconvulsive sz
from sz perspective ok to extubate when able.
35' crit including 2am discussions with MEAT CURER re: sz, daytime evaluation, exam, d/w hospitalist, etcher printed circuit boards, RN, patient's mom. excluding EEG reading time billed separately.
Consultation
Order
Date of Consultation: 10/08/24
Requesting Provider: Frandy
Reason for Consult: withdrawal seizure
Subjective/Objective
Subjective Data
Date of Service: October 08, 2024
from h&p:
Patient is a 28y M with PMH significant for alcohol use disorder and chronic benzodiazepine dependence who presents to ED for evaluation after witnessed seizure at home this evening. History obtained from patient and his mother at the bedside.
Patient states that he has been on Xanax 1mg QID for 5-10 years. He has also been drinking to excess - especially for the past year or so. He drinks about 3/4 bottle of vodka per day. His last drink was 2 days ago. He states that he is committed
to quitting 'on my own'. He notes that he has also been weaning off of his Xanax. He has decreased from his long-standing QID dosing to two or three times daily.
During my evaluation, patient experienced another tonic-clonic seizure with evident mucosal / tongue injury and bloody secretions from the mouth. He was given IV Valium.
Discussion with ED physician and mother at bedside. Decision made to intubate and sedate the patient given recurrent seizure activity despite BZDs received thus far.
~2 am spoke with Lilibeth Leonard MEAT CURER - patient admitted for witnessed seizure in the setting of ETOH and BZD dependence and concern for withdrawal
Serene reviewed, when the tracing began 12:27 am there is right frontal seizure consisting of rhythmic delta 2.5-3 hz lasting until ~12:38 am. since then his eeg tracing has looked good. i do not agree with seizures where Clarity AI is detecting
them.
spoke to patient's mom - he did return to his baseline in between the 3 seizures that he had overnight. has not had any unprovoked seizures.
Objective Data
Vital Signs
Temp Pulse Resp BP Pulse Ox
37.1 C 104 18 117/68 98
10/08/24 01:18 10/08/24 06:00 10/08/24 06:00 10/08/24 06:00 10/08/24 07:33
Lab Results
10/08/24 05:50
PT 14.9 Sec (11.4-14.6) H 10/08/24 01:40
INR 1.14 10/08/24 01:40
APTT 24.9 Sec (23.4-35.0) 10/08/24 01:40
Sodium 132 mmol/L (135-145) L 10/08/24 05:50
Potassium 3.7 mmol/L (3.5-5.1) 10/08/24 05:50
BUN 8 mg/dl (9-20) L 10/08/24 05:50
Glucose 83 mg/dl (70-99) 10/08/24 05:50
Calcium 8.0 mg/dl (8.4-10.2) L 10/08/24 05:50
Phosphorus 3.0 mg/dl (2.5-4.5) 10/08/24 01:40
Ur Buprenorphine Negative (Negative) 10/08/24 01:40
Patient Allergies
No Known Allergies Allergy (Verified 10/07/24 20:26)
Physical Exam
-
Easily awoken
pupils 2mm sluggish bilaterally
follows commands thumbs up, 2 fingers, bilaterally
moving all ext antigravity
Medications
-
Active Medications
Generic Name Dose Route Start Last Admin
Trade Name Freq PRN Reason Stop Dose Admin
Acetaminophen 650 mg 10/08/24 03:07
Acetaminophen (Oral Solution) 650 Mg/20.3 Ml Cup TUBE 11/05/24 03:05
Q6HPRN PRN
fever>100.3/mild pain
Ceftriaxone Sodium 1,000 mg 10/08/24 02:00 10/08/24 04:30
Ceftriaxone 1000 Mg / 10 Ml Vial IV 1,000 mg
DAILY@0000 MOY Administration
Diazepam 10 mg 10/08/24 02:07 10/08/24 07:58
Diazepam 10 Mg/2 Ml Inj IV 11/05/24 01:15 10 mg
Q1HPRN PRN Administration
MSAS > 11
Diazepam 5 mg 10/08/24 02:09
Diazepam 10 Mg/2 Ml Inj IV 11/05/24 01:15
Q1HPRN PRN
MSAS 8-11
Fentanyl Citrate 50 mcg 10/08/24 00:51 10/08/24 08:52
Fentanyl (50 Mcg/Ml) 100 Mcg/2 Ml Ampul IV 10/22/24 00:50 50 mcg
[id number] PRN Administration
see protocol
Protocol
Folic Acid 1 mg 10/08/24 08:00 10/08/24 09:03
Folic Acid 1 Mg Tablet PO 11/05/24 07:59 Not Given
DAILY MOY
Lactated Ringer's 1,000 mls @ 125 mls/hr 10/08/24 01:16 10/08/24 01:52
Lr IV 1,000 mls
.Q8H MOY Administration
Folic Acid 1 mg/ Sodium 50.2 mls @ 200.8 mls/hr 10/08/24 01:16
Chloride IV 11/05/24 01:15
DAILYPRN PRN
if NPO
Propofol 1,000,000 mcg in 100 mls @ 0 mls/hr 10/08/24 01:16 10/08/24 03:19
Diprivan IV 100 mls
PER PROTOCOL MOY Administration
Protocol
Per Protocol
Metronidazole 100 mls @ 100 mls/hr 10/08/24 07:39
Flagyl 500 Mg IV
Q12@0400,1600 MOY
Fentanyl Citrate 1,000 mcg in 100 mls @ 0 mls/hr 10/08/24 08:00
Sublimaze IV
PER PROTOCOL MOY
Protocol
Per Protocol
Dexmedetomidine HCl 400 mcg in 100 mls @ 0 mls/hr 10/08/24 09:15 10/08/24 09:11
Precedex IV 100 mls
PER PROTOCOL MOY Administration
Protocol
Per Protocol
Lorazepam 1 mg 10/08/24 01:16
Lorazepam 1 Mg Tablet PO 11/05/24 01:15
Q2HPRN PRN
MSAS 5-7
Pantoprazole Sodium 40 mg 10/08/24 08:00 10/08/24 09:02
Pantoprazole Sodium 40 Mg/10 Ml Vial IV 11/05/24 07:59 40 mg
DAILY MOY Administration
Polyethylene Glycol 17 grams 10/08/24 08:00
Polyethylene Glycol Powder 17 Grams Packet TUBE 11/05/24 07:59
DAILY MOY
Sodium Chloride 0 flush 10/08/24 02:00
Sodium Chloride 0.9% (Flush) Syringe IV 11/05/24 01:59
PER PROTOCOL MOY
Sodium Chloride 10 ml 10/08/24 08:00 10/08/24 09:02
Sodium Chloride 0.9% (Preservative Free) 10 Ml Vial IV 11/05/24 07:59 10 ml
DAILY MOY Administration
Sterile Water 10 ml 10/09/24 00:00
Sterile Water For Injection 10 Ml Vial IV 11/06/24 00:00
Q24H MOY
Thiamine HCl 100 mg 10/11/24 08:00
Thiamine 100 Mg Tablet PO 11/08/24 07:59
BID MOY
Thiamine HCl 200 mg 10/08/24 01:16 10/08/24 09:03
Thiamine (100 Mg/Ml) 2 Ml Vial IV 10/10/24 16:01 200 mg
Q8 MOY Administration
Home Medications
�Medication �Instructions �Recorded
alprazolam 1 mg tablet (Xanax) 1 mg PO TID PRN anxiety #4 tabs 04/23/24
--- NOTE | 2024-10-08 10:17 | CM ---
Met with patient mom
patient intubated
PMH significant for alcohol use disorder and chronic benzodiazepine dependence who presents to ED for evaluation after witnessed seizure at home
IA obtained by mom who was very tearful
CM consult for substance abuse
[facility] REFERRAL placed-spoke with Marylin from [facility]
they will see patient once extubated
Patient mom reports he has been living with her for approximately a year, prior was living with his brother in [place]
Mom's address: [address] [place] [address] Rd, [address], [place] [facility] [place]ician in [place], [place], who he gets his Xanax prescribed' she does not recall a name
Pharmacy: unknown per mom
PLAN: TBD, follow hospital progression, [facility] referral placed, CM to follow for dispo planning/needs
[2024-10-08] MEDS: MIRALAX 17 GRAMS TUBE (10:32)
--- NOTE | 2024-10-08 10:33 | W.PN.HOSP.TC ---
Today's Communication/Plan
-
Continue as needed benzodiazepines
Continue ventilator management
Continue thiamine, folic acid
Continue monitoring EEG via Ceribell
Assessment / Plan
Assessment / Plan
Gen-sedated, NAD
HEENT-intubated, NC, AT, anicteric, clear oral mm
Neck-supple
CV-reg, no M, +S1/S2
Lungs-clear B/L
Abd-soft, NT, ND
Ext-no edema
Musculoskeletal-no cyanosis, clubbing
Skin-warm and dry
Alcohol/benzodiazepine withdrawal seizure -intubated in the emergency room for airway protection. Chest x-ray after intubation shows moderately decreased lung volumes, mild bibasilar atelectasis.
CT head on admission without acute disease. 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
Currently sedated on propofol and Precedex.
Last seizure was 12:27-12:38 AM as per Ceribell reading.
Appreciate neurology input. No indication for antiepileptics. Continue benzodiazepines. Continue treating alcohol/benzodiazepine withdrawal syndrome.
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
Anion gap metabolic acidosis -present on admission. Improving.
Hypomagnesemia -present on admission. Improving.
Acute hepatitis -suspect alcohol induced hepatitis. Present on admission. Discriminant function 12.5. No indication for steroids.
Severe alcohol use disorder -continue treating withdrawal symptoms. Continue thiamine and folic acid. Will need alcohol rehab on discharge. Psychiatry consulted.
Last drink of alcohol was 2 to 3 days prior to presentation.
Hyponatremia -present on admission. Improving.
Presumed left lower lobe aspiration pneumonitis -on prophylactic antibiotics. Low threshold to discontinue.
Chronic benzodiazepine dependence
Anxiety/depression
Obesity due to excess calories
Full code
Mother updated at the bedside.
Anticipated Discharge: > 48 hours
Subjective/Interval History
-
Date of Service: October 08, 2024
Patient seen and examined. Sedated, intubated. Looks comfortable.
Mother at the bedside.
Objective Data
-
Labs:
Laboratory Results
10/07/24 10/08/24 10/08/24
23:52 01:40 05:50
WBC 10.1 8.6
Hgb 16.4 13.7
Hct 45.1 37.8 L
Plt Count 226 210
PT 14.9 H
INR 1.14
APTT 24.9
HCO3 22.0
Sodium 133 L 132 L
Potassium 4.2 3.7
Chloride 97 L 101
Carbon Dioxide 22 23
BUN 8 L 8 L
Creatinine 0.7 0.6 L
Glucose 159 H 83
Calcium 8.4 8.0 L
Total Bilirubin 3.8 H
AST 245 H
ALT 103 H
Alkaline Phosphatase 66
10/08/24 10/08/24 10/08/24
10:00 14:00 18:00
WBC
Hgb
Hct
Plt Count
PT
INR
APTT
HCO3
Sodium Pending Pending Pending
Potassium Pending Pending Pending
Chloride Pending Pending Pending
Carbon Dioxide Pending Pending Pending
BUN Pending Pending Pending
Creatinine Pending Pending Pending
Glucose Pending Pending Pending
Calcium Pending Pending Pending
Total Bilirubin
AST
ALT
Alkaline Phosphatase
10/08/24
22:00
WBC
Hgb
Hct
Plt Count
PT
INR
APTT
HCO3
Sodium Pending
Potassium Pending
Chloride Pending
Carbon Dioxide Pending
BUN Pending
Creatinine Pending
Glucose Pending
Calcium Pending
Total Bilirubin
AST
ALT
Alkaline Phosphatase
Vital Signs:
Vital Signs
Temp Pulse Resp BP Pulse Ox
98.7 F 104 18 117/68 98
10/08/24 01:18 10/08/24 06:00 10/08/24 06:00 10/08/24 06:00 10/08/24 07:33
I&O
10/07/24 10/08/24 10/09/24
06:59 06:59 06:59
Intake Total 157.2 / 157.2
Output Total 300 / 300 325 / 325
Balance -300 / -300 -167.8 / -167.8
Review of Systems
-
Unable to obtain full review of systems at this time due to: Acuity and Patient Intubation
[2024-10-08] MEDS: FOLVITE 1 MG PO (11:25)
--- NOTE | 2024-10-08 12:50 | W.PN.UPDATE ---
Update Note
Progress Note Update
Patient is presently intubated, in soft restraints and sedated. He is not agitated or combative.
Admitted last night for seizure related to alcohol ans BZD abuse; allegedly drinking 3/4 bottle of vodka daily and up to 1mg of Xanax qid. He had a seizure during the admission process and was intubated; presently on alcohol withdrawal protocal as
wel as propofol and fentanyl.
Likely diagnosis is Alcohol abuse, Alcohol withdrawal, BZD abuse and BZD withdrawal.
We will follow through the department and do full evaluation once he his extubated and verbal.
.
[2024-10-08] MEDS: LEVOPHED 250 IV (13:32)
--- NOTE | 2024-10-08 13:35 | PTCARENOTE ---
Continuing to monitor pt closely and treat for agitation/MSAS per orders. Precedex, Fentanyl, Propofol gtts titrated as documented in work list interventions. No seizure like activity noted and Ceribel continues to show 0%. Frequent comfort care
provided. Pt becomes very agitated and aggressive w/ staff when awake- attempts to move his body down lower in bed in order to reach ETT w/ restrained hands. Requires 3+ staff people to keep pt from self extubating while waiting for prn meds
administered to take effect. Pt's SBP down into 80's with MAPs low 60's to 50's. Urine output also noted to be decreased. Dr Castro aware and LR bolus administered w/o improvement in BP. Levophed gtt started at 1332 per order to keep MAP >65.
[2024-10-08 14:25] LABS: Magnesium 2.1 mg/dl (1.6-2.3)
[2024-10-08] MEDS: UNASYN IV ×2 (14:53→20:22)
[2024-10-08] MEDS: TYLENOL ORAL SOLUTION 650 MG TUBE ×2 (15:00→21:07)
--- NOTE | 2024-10-08 16:00 | PTCARENOTE ---
Continuing to titrated Propofol/Fentanyl/Precedex and Levophed per ordered parameters. Per Dr Castro, pt's RASS to be -3. Urine output improving since LR bolus administered. Tylenol given for elevated temp. All systems reassesed q2h and w/o changes
other than as noted. Comfort care/hygiene provided and pt repositioned frequently. Safe environment maintained. Emotional support provided to pt's mother.
[2024-10-08] MEDS: VALIUM INJECTION 5 MG IV (16:33)
[2024-10-08] MEDS: LOVENOX 40 MG SC (18:06)
--- NOTE | 2024-10-08 19:00 | PTCARENOTE ---
vitals captured from prev shift, can only verify accuracy of vitals starting at 1900 for this shift.
--- NOTE | 2024-10-08 19:05 | EEG.RPT ---
Electroencephalogram Report
Recording
Date of EE10/08/24
Length of EEG recordin mins
Done with Video Recording: No
Patient Status: Emergency Room
Report
Clinical Background:�He is a 28 year old man with seizure cluster, in the setting of ETOH and BZD withdrawal
Introduction: An emergent EEG was done using Ceribell device in the ED. .
this file began 10/08/24 12:27 am until 1:20 am. duration 53 minutes done in the ED.
Background: In the most alert state, the PDR is 8-9 Hz with normal amplitude. There is spontaneous variability and reactivity. A normal amount of eyeblink artifacts in awake.
Sleep: No sleep is seen.�
Focal/epileptiform: At the beginning of the record from 12:27 until 12:38 am, there is seizure consisting of rhythmic delta in the right frontal region. There were no interictal epileptiform discharges.
Impression: focal status epilepticus seen at the beginning of the study.
the results were discussed with NANDA Urbina, 10/08/24 at 2:11 AM and decision to continue Ceribell monitoring in ICU.
--- NOTE | 2024-10-08 19:14 | EEGC.RPT ---
Continuous EEG Report
Recording
Start Date of Data Reviewed: 10/08/24
Start Time of Data Reviewed: 01:20
End Date of Data Reviewed: 10/08/24
End Time of Data Reviewed: 19:00
Type of EEG: Continuous
Done with Video Recording: No
Study Sequence: Continuation of ongoing Study
Report
Clinical Background:�He is a 28 year old man with seizure cluster, in the setting of ETOH and BZD withdrawal. seizure with focal status epilepticus was seen on Ceribell done in ED.
Introduction: An emergent EEG was continued using Ceribell device in the ICU.
this file began 10/08/24 1:20 am reported until 7 pm. duration 17 hrs 40 mins done in the ICU.
Background: In the most alert state, the PDR is 9-10 Hz with normal amplitude. There is spontaneous variability and reactivity. A normal amount of eyeblink artifacts in awake.
Sleep: No sleep is seen.�
Focal/epileptiform: No further seizures were seen. There were no focal or interictal epileptiform discharges.
Impression: no further seizures.
the results of the initial portion were discussed with angle furnaceman Dr Castro, 10/08/24 ~9 AM and decision to continue Ceribell monitoring until it is clinically apparent that the patient is not seizing
--- NOTE | 2024-10-08 20:00 | PTCARENOTE ---
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 Sat 100% on MV Fi02 40%. mouth care. IV x 3 WNL- Prop, Fent, Precedex, Levo, IVF Infusing per work list. OGT flushed,
clamped. Khan draining adequate amt orange urine. care ongoing.
[2024-10-09] VITALS (33 sets, daily range): BP systolic 119–162; BP diastolic 75–118; BMI 31.7
--- NOTE | 2024-10-09 | PTCARENOTE ---
no changes in pt assessment.
[2024-10-09] MEDS: THIAMINE INJECTION 200 MG IV ×4 (00:26→23:42)
[2024-10-09] MEDS: PRECEDEX 100 IV ×8 (00:27→23:42)
[2024-10-09] MEDS: DIPRIVAN 100 IV ×7 (02:39→23:42)
[2024-10-09] MEDS: UNASYN IV ×4 (03:00→20:20)
[2024-10-09] MEDS: LR 1000 IV (03:29)
--- NOTE | 2024-10-09 04:00 | PTCARENOTE ---
no changes in assessment.
[2024-10-09 04:11] LABS: Hematocrit 36.4 % (39.0-52.0); Hemoglobin 12.8 g/dL (13.0-18.0); Mean Corp Hgb Conc. 35.2 g/dL (33.0-37.0); Mean Corpuscular Volume 105.2 fL (80.0-94.0); Platelet Count 146 10^3/uL (130-400); Red Cell Dist. Width 13.2 % (11.5-14.5)
[2024-10-09 04:30] LABS: ALT (SGPT) 92 U/L (0-50); AST (SGOT) 190 U/L (17-59); Albumin 3.6 g/dl (3.5-5.0); Alkaline Phosphatase 40 U/L (38-126); Blood Urea Nitrogen 4 mg/dl (9-20); Calcium 7.9 mg/dl (8.4-10.2); Carbon Dioxide 22 mmol/L (22-30); Chloride 105 mmol/L (98-107); Estimated Creatinine Clearance > 125 ml/min; Glucose 89 mg/dl (70-99); Magnesium 1.5 mg/dl (1.6-2.3); Potassium 3.4 mmol/L (3.5-5.1); Sodium 135 mmol/L (135-145); Total Protein 6.2 g/dl (6.3-8.2); eGFR > 60.00
[2024-10-09 04:48] LABS: B.E. -3.2 mmol/L; HCO3 20.1 mmol/L (21-28); O2 Saturation % 99.9 % (94-98); PCO2 31 mmHg (35-48); PO2 147 mmHg (83-108)
[2024-10-09] MEDS: SUBLIMAZE 100 IV ×2 (05:15→14:37)
[2024-10-09] MEDS: MAGNESIUM SULFATE 50 IV (06:43)
[2024-10-09] MEDS: KCL 270 MEQ IV (06:44)
[2024-10-09] MEDS: MIRALAX 17 GRAMS TUBE (08:01)
[2024-10-09] MEDS: FOLVITE 1 MG PO (08:01)
[2024-10-09] MEDS: NSS (PRESERVATIVE FREE) 10 ML IV (08:01)
[2024-10-09] MEDS: PROTONIX IV 40 MG IV (08:02)
[2024-10-09] MEDS: LR IV (10:33)
[2024-10-09] MEDS: PHENOBARBITAL 107.6923 MG IV (10:45)
--- NOTE | 2024-10-09 13:37 | PTCARENOTE ---
Afebrile. Pt agitated this am. Weaning sedation as able. Sinus rhythm. Tolerating ventilator. Lungs CTA. OG tube clamped. No BM so far this shift. Good urine output via loya. All other assessments unchanged.
--- NOTE | 2024-10-09 13:46 | W.PN.INTV ---
Today's Communication / Plan
Recommendations
- Phenobarbital 5 mg/kg load followed by tapering dose
- Replacing K and Mg, recheck in AM.
- Attempt SAT once given Phenobarbital
- D/c Iv Ringer lactate
Assessment
-
28-year-old male with alcohol use disorder daily bottle of vodka, last drink , presents with seizures, witnessed in the ED, tongue injury, required intubation, admitted to ICU for further management
10/09 overview: , Volume AC 550/18/40%/5. Currently on Propofol, Fentanyl, Precedex and Ringer lactate infusions. No ET tube secretions. MAP 116, saturating 100%.
Assessment and plan:
#1. Severe Acute alcohol withdrawal with seizures
- Currently intubated, sedated
- Neurology service on case, no further seizures noted on EEG
- Continue thiamine and folic acid supplementation
- Head CT without acute findings, urine tox screen positive for benzos, marijuana
- Gets very agitated with lowering of sedation. Start Phenobarbital load 5mg/kg x 1 and then start tapering dose
- Once given Phenobarbital, will attempt to lower Propofol, Fentanyl and attempt to wean from ventilator while on Precedex
- Replacing K and Mg. Re-check in AM.
#2. Acute respiratory failure, intubated 10/07 in ED for airway protection
- Currently on volume AC, 550/18/40%/5, ABG 7.. Minimal vent settings
- Neurological status is primary barrier to extubation
#3. Mild hyponatremia
- Related to Alcoholism, improving
#4. Acute transaminitis
- Improving AST/ALT and Bilirubin
#5. H/o Depression/anxiety
#6. Concern for Aspiration pneumonia.
- Unasyn IV, check PCT in AM.
GI prophylaxis: Protonix
DVT prophylaxis: Lovenox
Critical Care time 45 mins -- The patient is admitted for acute critical illness for the treatment of vital organ failure and/or prevention of further life-threatening conditions. Total care includes time spent in review of history, physical exam,
medications, hemodynamic/ventilator parameters, laboratory data, imaging and discussion with house staff, pharmacy, respiratory therapy, summer nanny, and nursing.
Subjective Dataa
Subjective Data
Date of Service:
Date of Service: October 09, 2024
Subjective:
Currently intubated, mechanically ventilated and sedated.
Review of Systems
General: Unobtainable - Sedation
Objective Data
Data Reviewed
Vital Signs / I&O / Oxygen:
Vital Signs
Temp Pulse Resp BP Pulse Ox
98.4 F 64 18 141/108 100
10/09/24 13:07 10/09/24 13:01 10/09/24 13:01 10/09/24 13:00 10/09/24 13:01
Intake and Output
10/08/24 10/09/24 10/10/24
06:59 06:59 06:59
Intake Total 5209.5 / 5399.2 1370.9 / 1370.9
Output Total 300 / 300 1970 / 1970 780 / 780
Balance -300 / -300 3239.5 / 3429.2 590.9 / 590.9
SaO2 [A/C] 99
SaO2 100
Physical Exam
General: Comfortable
HEENT: Normocephalic
Cardiovascular: S1-S2
Respiratory: Clear
GI: Soft and Non Distended
Neurology: Other (Sedated)
Skin: Warm
Labs/Micro/Reports
Lab Data
10/09/24 03:41
10/09/24 03:41
Laboratory Results
10/09/24
04:22
pH 7.42
pCO2 31 L
pO2 147 H
HCO3 20.1 L
O2 Delivery Level
--- NOTE | 2024-10-09 13:55 | W.PN.HOSP.TC ---
Today's Communication/Plan
-
Alcohol withdrawal protocol
Assessment / Plan
Assessment / Plan
Gen-sedated, NAD
HEENT-intubated, NC, AT, anicteric, clear oral mm
Neck-supple
CV-reg, no M, +S1/S2
Lungs-clear B/L
Abd-soft, NT, ND
Ext-no edema
Musculoskeletal-no cyanosis, clubbing
Neuro-sedated on the vent
Skin-warm and dry
A/P:
Alcohol/benzodiazepine withdrawal seizure -intubated in the emergency room for airway protection. Chest x-ray after intubation shows moderately decreased lung volumes, mild bibasilar atelectasis.
CT head on admission without acute disease. 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
Currently sedated on propofol and Precedex.
Last seizure was 12:27-12:38 AM as per Ceribell reading.
Appreciate neurology input. No indication for antiepileptics. Continue benzodiazepines. Continue treating alcohol/benzodiazepine withdrawal syndrome.
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
Psychiatry following
Anion gap metabolic acidosis -present on admission. Improving.
Hypomagnesemia -present on admission. Improving.
Acute hepatitis -suspect alcohol induced hepatitis. Present on admission. Discriminant function 12.5. No indication for steroids.
Severe alcohol use disorder -continue treating withdrawal symptoms. Continue thiamine and folic acid. Will need alcohol rehab on discharge. Psychiatry consulted.
Last drink of alcohol was 2 to 3 days prior to presentation.
Hyponatremia -present on admission. Improving.
Presumed left lower lobe aspiration pneumonitis -on prophylactic antibiotics. Low threshold to discontinue.
Chronic benzodiazepine dependence
Anxiety/depression
Obesity due to excess calories
Full code
Mother updated at the bedside today on 10/09.
Total time spent on today's encounter was 52 minutes which included time spent in counseling the patient/family regarding diagnosis and treatment plan as listed above, goals of care, and symptom management. Case was discussed with nursing staff,
specialists, and care coordinators/case management. All labs and imaging personally reviewed by me. Remainder the time spent in detailed review of previous records, lab data, imaging, and other medical provider documentation.
Anticipated Discharge: > 48 hours
Subjective/Interval History
-
Date of Service: October 09, 2024
Patient seen and examined. Remains on the ventilator
Objective Data
-
Labs:
Laboratory Results
10/09/24 10/09/24
03:41 04:22
WBC 7.0
Hgb 12.8 L
Hct 36.4 L
Plt Count 146 D
HCO3 20.1 L
Sodium 135
Potassium 3.4 L
Chloride 105
Carbon Dioxide 22
BUN 4 L
Creatinine 0.6 L
Glucose 89
Calcium 7.9 L
Total Bilirubin 2.8 H
AST 190 H
ALT 92 H
Alkaline Phosphatase 40
Vital Signs:
Vital Signs
Temp Pulse Resp BP Pulse Ox
98.4 F 64 18 141/108 100
10/09/24 13:07 10/09/24 13:01 10/09/24 13:01 10/09/24 13:00 10/09/24 13:01
I&O
10/08/24 10/09/24 10/10/24
06:59 06:59 06:59
Intake Total 5209.5 / 5399.2 1370.9 / 1370.9
Output Total 300 / 300 1970 / 1970 780 / 780
Balance -300 / -300 3239.5 / 3429.2 590.9 / 590.9
--- NOTE | 2024-10-09 14:43 | CM ---
Intubated, agitation with lowering of sedation, multiple IV medications, now on IV/Phnobarb. Discharge POC: TBD. [facility] involved.
--- NOTE | 2024-10-09 16:30 | PTCARENOTE ---
Pt following commands. Agitated at time. All other assessments unchanged.
[2024-10-09] MEDS: PHENOBARBITAL 97.5 MG IV ×2 (16:40→23:00)
[2024-10-09] MEDS: LOVENOX 40 MG SC (18:01)
[2024-10-09 18:09] LABS: Glucose - Point of Care 87 mg/dl (70-99)
--- NOTE | 2024-10-09 19:00 | PTCARENOTE ---
vitals captured from prev shift, can only verify accuracy of vitals starting at this time for shift.
[2024-10-09] MEDS: VALIUM INJECTION 5 MG IV (19:23)
--- NOTE | 2024-10-09 19:27 | PTCARENOTE ---
vent alarming, B/L UE restraints present but pt leaning over toward hand and found to have disconnected vent tubing from ETT & reaching for ETT. pt very agitated, uncooperative, RASS+3. sedation adjusted, PRN valium for MSAS 8. care ongoing.
--- NOTE | 2024-10-09 21:47 | EEGC.RPT ---
Continuous EEG Report
Recording
Start Date of Data Reviewed: 10/08/24
Start Time of Data Reviewed: 19:00
End Date of Data Reviewed: 10/09/24
End Time of Data Reviewed: 08:33
Type of EEG: Continuous
Study Sequence: Termination of Study
Report
Clinical Background:�He is a 28 year old man with seizure cluster, in the setting of ETOH and BZD withdrawal. seizure with focal status epilepticus was seen on Ceribell done in ED.
Introduction: An emergent EEG was continued using Ceribell device in the ICU.
this report continues 10/08/24 7:00 pm until termination 10/09/24 8:33 am. duration 13 hrs 33 mins done in the ICU.
Medications include propofol, precedex, phenobarbital, fentanyl
Background: In the sedated, state, there is frontally predominant alpha activity
Sleep: No sleep is seen.�
Focal/epileptiform: No further seizures were seen. There were no focal or interictal epileptiform discharges.
Impression: no further seizures. Alpha coma, consistent with medication effect.
[2024-10-10] VITALS (17 sets, daily range): BP systolic 125–187; BP diastolic 92–136; BMI 31.9
--- NOTE | 2024-10-10 | PTCARENOTE ---
pt intermittently slightly restless, attempts made to orient to time and situation, nods appropriately, no changes in assessment.
[2024-10-10] MEDS: SUBLIMAZE 50 MCG IV (01:29)
--- NOTE | 2024-10-10 01:35 | PTCARENOTE ---
pt agitated, uncooperative when awake, kicking staff, prn fentanyl/increase in gtt.
[2024-10-10] MEDS: SUBLIMAZE 100 IV (02:26)
[2024-10-10] MEDS: VALIUM INJECTION 5 MG IV ×2 (02:27→05:22)
[2024-10-10] MEDS: PRECEDEX 100 IV ×4 (02:27→08:44)
[2024-10-10] MEDS: UNASYN IV ×4 (02:30→20:33)
[2024-10-10] MEDS: DIPRIVAN 100 IV ×2 (03:04→05:46)
[2024-10-10 03:21] LABS: Hematocrit 40.2 % (39.0-52.0); Hemoglobin 14.6 g/dL (13.0-18.0); Mean Corp Hgb Conc. 36.3 g/dL (33.0-37.0); Mean Corpuscular Volume 102.8 fL (80.0-94.0); Nucleated Red Blood Cells % 0 % (-); Platelet Count 144 10^3/uL (130-400); Red Cell Dist. Width 12.6 % (11.5-14.5)
[2024-10-10 03:49] LABS: Procalcitonin 0.42 ng/ml (0.0-0.25)
[2024-10-10 03:52] LABS: Magnesium 1.3 mg/dl (1.6-2.3); Triglycerides 353 mg/dl (10-149)
[2024-10-10] MEDS: MAGNESIUM SULFATE 50 IV (04:31)
[2024-10-10] MEDS: TYLENOL ORAL SOLUTION 650 MG TUBE (05:27)
[2024-10-10 06:19] LABS: ALT (SGPT) 85 U/L (0-50); AST (SGOT) 140 U/L (17-59); Albumin 3.9 g/dl (3.5-5.0); Alkaline Phosphatase 42 U/L (38-126); Blood Urea Nitrogen < 2 mg/dl (9-20); Calcium 8.0 mg/dl (8.4-10.2); Carbon Dioxide 19 mmol/L (22-30); Chloride 102 mmol/L (98-107); Estimated Creatinine Clearance > 125 ml/min; Glucose 83 mg/dl (70-99); Potassium 4.1 mmol/L (3.5-5.1); Sodium 132 mmol/L (135-145); Total Protein 6.9 g/dl (6.3-8.2); eGFR > 60.00
[2024-10-10] MEDS: PROTONIX IV 40 MG IV (07:42)
[2024-10-10] MEDS: FOLVITE 1 MG PO (07:42)
[2024-10-10] MEDS: MIRALAX 17 GRAMS TUBE (07:42)
[2024-10-10] MEDS: NSS (PRESERVATIVE FREE) 10 ML IV (07:42)
[2024-10-10] MEDS: PHENOBARBITAL 97.5 MG IV ×3 (07:43→21:30)
[2024-10-10] MEDS: THIAMINE INJECTION 200 MG IV ×2 (07:43→15:48)
[2024-10-10] MEDS: ATIVAN 1 MG PO (08:43)
[2024-10-10] MEDS: DIPRIVAN IV (08:43)
--- NOTE | 2024-10-10 08:55 | W.PN.HOSP.TC ---
Today's Communication/Plan
-
Phenobarbital taper. IV Unasyn
Assessment / Plan
Assessment / Plan
Gen-sedated, NAD
HEENT-NC, AT, anicteric, clear oral mm
Neck-supple
CV-reg, no M, +S1/S2
Lungs-clear B/L
Abd-soft, NT, ND
Ext-no edema
Musculoskeletal-no cyanosis, clubbing
Neuro-alert oriented x 3 no gross neurological deficit but generalized weakness
Skin-warm and dry
A/P:
Alcohol/benzodiazepine withdrawal seizure -intubated in the emergency room for airway protection. Status post extubated today on 10/10.
He was sedated on propofol fentanyl and Precedex. Started phenobarbital. Continue thiamine and folic acid.
Appreciate neurology input. No indication for antiepileptics. Continue benzodiazepines. Continue treating alcohol/benzodiazepine withdrawal syndrome.
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
Psychiatry following and will await reevaluation now that extubated
Anion gap metabolic acidosis -present on admission. Improving.
Hypomagnesemia -present on admission. Needs replacement
Acute hepatitis -suspect alcohol induced hepatitis. Present on admission. Discriminant function 12.5. No indication for steroids.
Severe alcohol use disorder -continue treating withdrawal symptoms. Continue thiamine and folic acid. Will need alcohol rehab on discharge. Psychiatry consulted.
Last drink of alcohol was 2 to 3 days prior to presentation.
Hyponatremia -present on admission. Improving.
Aspiration pneumonia-still febrile and procalcitonin moderately elevated, if persistent might need blood cultures, cont antibiotics of IV Unasyn
Chronic benzodiazepine dependence
Anxiety/depression
Obesity due to excess calories
Full code
Mother updated at the bedside yesterday.
Total time spent on today's encounter was 50 minutes which included time spent in counseling the patient/family regarding diagnosis and treatment plan as listed above, goals of care, and symptom management. Case was discussed with nursing staff,
specialists, and care coordinators/case management. All labs and imaging personally reviewed by me. Remainder the time spent in detailed review of previous records, lab data, imaging, and other medical provider documentation.
Anticipated Discharge: 24 - 48 hours
Subjective/Interval History
-
Date of Service: October 10, 2024
Patient extubated earlier this morning. Hoarse voice. Alert. Wanted to go home already but understood that he needs to stay. Febrile with Tmax 101.9 Fahrenheit
Objective Data
-
Labs:
Laboratory Results
10/10/24 10/10/24 10/10/24
02:59 04:02 05:41
WBC 8.5
Hgb 14.6
Hct 40.2
Plt Count 144
Sodium Cancelled Cancelled 132 L
Potassium Cancelled Cancelled 4.1
Chloride Cancelled Cancelled 102
Carbon Dioxide Cancelled Cancelled 19 L
BUN Cancelled Cancelled < 2 L
Creatinine Cancelled Cancelled 0.5 L
Glucose Cancelled Cancelled 83
Calcium Cancelled Cancelled 8.0 L
Total Bilirubin Cancelled Cancelled 3.2 H
AST Cancelled Cancelled 140 H
ALT Cancelled Cancelled 85 H
Alkaline Phosphatase Cancelled Cancelled 42
Vital Signs:
Vital Signs
Temp Pulse Resp BP Pulse Ox
101.9 F H 76 18 138/102 98
10/10/24 08:00 10/10/24 07:00 10/10/24 07:00 10/10/24 07:00 10/10/24 07:54
I&O
10/09/24 10/10/24 10/11/24
06:59 06:59 06:59
Intake Total 5209.5 / 5399.2 2729.9 / 2809.6 279.4 / 279.4
Output Total 1969 / 1969 3515 / 3515 520 / 520
Balance 3239.5 / 3429.2 -785.1 / -705.4 -240.6 / -240.6
--- NOTE | 2024-10-10 10:07 | RESPNOTE ---
Pt extubated to room air at 10:00, from CPAP 5 PS 5 40%, vital signs stable, SAO2 96%
--- NOTE | 2024-10-10 11:19 | PTCARENOTE ---
Extubated at 1000. Off all drips. Restraints d/c'd. AAOx3. Sinus rhythm. SpO2 96-97% on room air. Productive cough. OG tube and Khan d/c'd. All other assessments unchanged.
--- NOTE | 2024-10-10 12:56 | CM ---
Chart reviewed and patient has been extubated, patient is followed by [facility] will reach out to [facility] to follow to follow up with patient.
Plan; [facility] to reach out to patient today and follow up with possible options for patient.
--- NOTE | 2024-10-10 14:49 | W.PN.INTV ---
Today's Communication / Plan
Recommendations
- Extubated to nasal cannula
- Continue Unasyn for total of 7 days, can transition to p.o. Augmentin
- Continue phenobarb taper. Discontinue benzodiazepines and fentanyl
- Anticipate transfer out of ICU later today
- Quality Control Projectionist service will sign off, please call as needed
Assessment
-
28-year-old male with alcohol use disorder daily bottle of vodka, last drink , presents with seizures, witnessed in the ED, tongue injury, required intubation, admitted to ICU for further management
Assessment and plan:
#1. Severe Acute alcohol withdrawal with seizures
- Patient has been intubated. Wean off sedation, initiated SAT/SBT. Patient tolerated well, successfully extubated.
- Neurology service on case, no further seizures noted on EEG
- Continue thiamine and folic acid supplementation
- Head CT without acute findings, urine tox screen positive for benzos, marijuana
- Continue phenobarb taper, Precedex on an as needed basis. Discontinue benzodiazepines and fentanyl.
#2. Acute respiratory failure, intubated 10/07 in ED for airway protection
- 10/10, tolerated SAT/SBT well, extubated to nasal cannula
#3. Mild hyponatremia
- Related to Alcoholism, improving
#4. Acute transaminitis
- Improving AST/ALT
#5. H/o Depression/anxiety
- Psychiatry service to evaluate now that patient has been extubated
#6. Concern for Aspiration pneumonia.
- Unasyn IV, procalcitonin elevated, also low-grade fever.
GI prophylaxis: Protonix
DVT prophylaxis: Lovenox
Critical Care time 38 mins -- The patient is admitted for acute critical illness for the treatment of vital organ failure and/or prevention of further life-threatening conditions. Total care includes time spent in review of history, physical exam,
medications, hemodynamic/ventilator parameters, laboratory data, imaging and discussion with house staff, pharmacy, respiratory therapy, professional golf tournament player, and nursing.
Subjective Dataa
Subjective Data
Date of Service:
Date of Service: October 10, 2024
Subjective:
Patient intubated, mechanically ventilated and sedated.
Review of Systems
General: Unobtainable - Sedation
Objective Data
Data Reviewed
Vital Signs / I&O / Oxygen:
Vital Signs
Temp Pulse Resp BP Pulse Ox
98.5 F 84 20 134/118 99
10/10/24 12:06 10/10/24 10:00 10/10/24 10:00 10/10/24 10:00 10/10/24 10:00
Intake and Output
10/09/24 10/10/24 10/11/24
06:59 06:59 06:59
Intake Total 5209.5 / 5399.2 2729.9 / 2809.6 384.1 / 384.1
Output Total 1969 / 1969 3515 / 3515 845 / 845
Balance 3239.5 / 3429.2 -785.1 / -705.4 -460.9 / -460.9
SaO2 [A/C] 100
SaO2 99
Physical Exam
General: Comfortable
HEENT: Normocephalic
Cardiovascular: S1-S2
Respiratory: Clear
GI: Soft and Non Distended
Neurology: Other (Sedated)
Skin: Warm
Labs/Micro/Reports
Lab Data
10/10/24 02:59
10/10/24 05:41
--- NOTE | 2024-10-10 15:32 | W.PN.UPDATE ---
Update Note
Progress Note Update
pt seen by me yesterday but was intubated; seen today x 2 for assessment of alcohol use disorder and his willingness to get treatment. chart reviewed, met with mother and spoke with her by phone, discussed with nursing staff.
28 yo man admitted for repeated seizures in setting of xanax overuse and alcohol use disorder. Has had several similar episodes which have followed same pattern--seizure, ED, refusal of further care.
No prior psychiatric or substance use disorder care known, though has seen physician in [place] who is prescribing Xanax 1 mg tid to him. Pt declines to speak about this, says he does not want to get this doctor in trouble.
Pt gives no reason for his alcohol use, instead insists that it is up to him whether he will stop. Has told crisis here in the past 'go see somebody who needs your help, I don't.' Mother and brothers have been encouraging sobriety and treatment to
no avail.
Per mother, pt was doing great in elementary and high schoo in [place]. 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 Father of lung cancer which hit family hard; pt began drinking in and moved in with GF who also partied a
lot. They split after 7 years, which has been very difficult for pt. He has lived with brother's (4 and 2 years older) but had to leave due to persistent drinking. Now living with mother here in [place]; she has been told she should set limits as
well but very difficult to consider asking her youngest child to leave to go where?
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 Currently has a court case against him by [employer] for knocking over a utility pole when driving intoxicated. Mother states police have been called at times by neighbors due to
his behavior but no charges have been filed (despite pt occ telling police that he will kill them.)
Middle brother had similiar serious alcohol problem, was able to stop on his own, now doing well ( two children working.) Older brother doing well also.
On exam pt lying in bed with very raspy voice due to recent extubation, at times hard to understand. On multiple monitors which he fiddles with. States immediately that he's not going to a program, he's not going to therapy, that the only one who
can get him to stop is himself. Denies depression (not very convincingly) denies thoughts of suicide, denies any other psychiatric symptoms. Demeans effectiveness of psychiatric and substance use disorder care, says it does not help anybody, 'the
only one who can stop you is you.'
Ultimately asked me to leave. I explained that there may be another psychiatrist who will see him tomorrow but that he cannot be forced to receive care at this point.
[2024-10-10] MEDS: LOVENOX 40 MG SC (18:00)
--- NOTE | 2024-10-10 18:27 | PTCARENOTE ---
PATIENT TRANSFERRED FROM ICU TO [facility]. PT WAS ABLE TO WALK TO BED FROM WHEELCHAIR. PT ARRIVED WITH MOTHER. PT AOOX3, PLEASANT AND COOPERATIVE. PT ORIENTED TO UNIT. NO QUESTIONS AT THIS TIME
[2024-10-11] VITALS (7 sets, daily range): BP systolic 133–169; BP diastolic 95–126; PULSE 130; O2SAT 98
[2024-10-11] MEDS: TRANDATE 10 MG IV ×2 (00:15→11:44)
[2024-10-11] MEDS: UNASYN IV ×4 (03:00→19:53)
[2024-10-11] MEDS: PHENOBARBITAL 97.5 MG IV (07:07)
[2024-10-11] MEDS: VITAMIN B1 100 MG PO ×2 (07:08→19:53)
[2024-10-11] MEDS: FOLVITE 1 MG PO (07:08)
[2024-10-11] MEDS: MIRALAX TUBE (07:09)
[2024-10-11 08:29] LABS: INR 1.00; PT 13.7 Sec (11.4-14.6)
[2024-10-11] MEDS: CATAPRES 0.1 MG PO ×2 (08:34→19:53)
[2024-10-11 08:41] LABS: Hematocrit 40.0 % (39.0-52.0); Hemoglobin 14.6 g/dL (13.0-18.0); Mean Corp Hgb Conc. 36.5 g/dL (33.0-37.0); Mean Corpuscular Volume 102.8 fL (80.0-94.0); Nucleated Red Blood Cells % 0 % (-); Platelet Count 199 10^3/uL (130-400); Red Cell Dist. Width 12.4 % (11.5-14.5)
[2024-10-11 09:13] LABS: ALT (SGPT) 71 U/L (0-50); AST (SGOT) 105 U/L (17-59); Albumin 4.7 g/dl (3.5-5.0); Alkaline Phosphatase 54 U/L (38-126); Blood Urea Nitrogen 3 mg/dl (9-20); Calcium 9.2 mg/dl (8.4-10.2); Carbon Dioxide 21 mmol/L (22-30); Chloride 94 mmol/L (98-107); Estimated Creatinine Clearance > 125 ml/min; Glucose 85 mg/dl (70-99); Magnesium 1.4 mg/dl (1.6-2.3); Potassium 4.1 mmol/L (3.5-5.1); Sodium 130 mmol/L (135-145); Total Protein 7.9 g/dl (6.3-8.2); eGFR > 60.00
--- NOTE | 2024-10-11 09:58 | W.PN.HOSP.TC ---
Today's Communication/Plan
-
phenobarbital tapering, clonidine, repeat cxr and cont iv abx
Assessment / Plan
Assessment / Plan
Gen-sedated, NAD
HEENT-NC, AT, anicteric, clear oral mm
Neck-supple
CV-reg, no M, +S1/S2
Lungs-clear B/L
Abd-soft, NT, ND
Ext-no edema
Musculoskeletal-no cyanosis, clubbing
Neuro-alert oriented x 3 no gross neurological deficit but generalized weakness
Skin-warm and dry
A/P:
Alcohol/benzodiazepine withdrawal seizure -intubated in the emergency room for airway protection. Status post extubated on 10/10.
He was sedated on propofol fentanyl and Precedex. Started phenobarbital and cont taper. Continue thiamine and folic acid.
Appreciate neurology input. No indication for antiepileptics. Continue treating alcohol/benzodiazepine withdrawal syndrome.
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
Psychiatry following-pending today evaluation
Elevated blood pressure, probably hypertension-start clonidine for both alcohol and benzo related issues and probably hypertension and IV labetalol as needed
Anion gap metabolic acidosis -present on admission. Improving.
Hypomagnesemia -present on admission. replete and trend
Acute hepatitis -suspect alcohol induced hepatitis. Present on admission. Discriminant function 12.5. No indication for steroids.
Severe alcohol use disorder -continue treating withdrawal symptoms. Continue thiamine and folic acid. Will need alcohol rehab on discharge. Psychiatry consulted.
Last drink of alcohol was 2 to 3 days prior to presentation.
Hyponatremia -present on admission. Improving.
Aspiration pneumonia-still febrile and procalcitonin moderately elevated, cont antibiotics of IV Unasyn and repeat cxr and possible switch to oral tomorrow if repeated cxr favorable
Chronic benzodiazepine dependence-Discussed possibility of Klonopin taper if needed but he'll think about this-at the moment he is off scheduled benzo's which seems a step in the right direction.
Anxiety/depression
Obesity due to excess calories
Full code
Mother updated at the bedside today 10/11.
Time spent 35 min
Anticipated Discharge: 24 - 48 hours
Subjective/Interval History
-
Date of Service: October 11, 2024
Still feels anxious, less n/v, no cp/sob. afebrile
Objective Data
-
Labs:
Laboratory Results
10/11/24
07:52
WBC 9.3
Hgb 14.6
Hct 40.0
Plt Count 199 D
PT 13.7
INR 1.00
Sodium 130 L
Potassium 4.1
Chloride 94 L
Carbon Dioxide 21 L
BUN 3 L
Creatinine 0.5 L
Glucose 85
Calcium 9.2
Total Bilirubin 3.6 H
AST 105 H
ALT 71 H
Alkaline Phosphatase 54
Vital Signs:
Vital Signs
Temp Pulse Resp BP Pulse Ox
99.2 F 126 18 169/126 98
10/11/24 07:00 10/11/24 07:00 10/11/24 07:00 10/11/24 07:00 10/11/24 07:00
I&O
10/10/24 10/11/24 10/12/24
06:59 06:59 06:59
Intake Total 2729.9 / 2809.6 1314.1 / 1314.1
Output Total 3515 / 3515 845 / 845
Balance -785.1 / -705.4 469.1 / 469.1
--- NOTE | 2024-10-11 13:03 | CM ---
CM reviewed chart, discussed with Garret from [facility], in to see patient to discuss resources- provided patient with AA information. Patient denies needs from CM at this time. CM will continue to follow for all discharge planning needs.
Plan; home with family, [facility] provided outpatient resources
[2024-10-11] MEDS: MAGNESIUM SULFATE 50 IV (14:04)
--- NOTE | 2024-10-11 14:08 | W.PN.UPDATE ---
Update Note
Progress Note Update
patient did not want to talk to psych today. he did say i could come back tomorrow to talk to him and he would reconsider!
[2024-10-11] MEDS: LOVENOX 40 MG SC (17:54)
[2024-10-11] MEDS: LUMINAL 64.8 MG PO ×2 (17:54→21:44)
[2024-10-12] MEDS: UNASYN IV ×2 (01:44→08:28)
[2024-10-12 03:00] VITALS: BP 119/82
[2024-10-12 08:10] VITALS: BP 158/104
[2024-10-12 08:17] LABS: Hematocrit 40.2 % (39.0-52.0); Hemoglobin 14.2 g/dL (13.0-18.0); Mean Corp Hgb Conc. 35.3 g/dL (33.0-37.0); Mean Corpuscular Volume 104.4 fL (80.0-94.0); Nucleated Red Blood Cells % 0 % (-); Platelet Count 251 10^3/uL (130-400); Red Cell Dist. Width 12.7 % (11.5-14.5)
[2024-10-12] MEDS: LUMINAL 64.8 MG PO ×3 (08:25→21:45)
[2024-10-12] MEDS: CATAPRES 0.1 MG PO ×2 (08:26→19:50)
[2024-10-12] MEDS: MIRALAX 17 GRAMS TUBE (08:27)
[2024-10-12] MEDS: VITAMIN B1 100 MG PO ×2 (08:27→19:50)
[2024-10-12] MEDS: FOLVITE 1 MG PO (08:27)
[2024-10-12 08:39] LABS: ALT (SGPT) 84 U/L (0-50); AST (SGOT) 181 U/L (17-59); Albumin 4.6 g/dl (3.5-5.0); Alkaline Phosphatase 55 U/L (38-126); Blood Urea Nitrogen 7 mg/dl (9-20); Calcium 9.6 mg/dl (8.4-10.2); Carbon Dioxide 23 mmol/L (22-30); Chloride 98 mmol/L (98-107); Estimated Creatinine Clearance > 125 ml/min; Glucose 90 mg/dl (70-99); INR 0.98; Magnesium 1.8 mg/dl (1.6-2.3); PT 13.4 Sec (11.4-14.6); Potassium 4.4 mmol/L (3.5-5.1); Sodium 133 mmol/L (135-145); Total Protein 8.0 g/dl (6.3-8.2); eGFR > 60.00
[2024-10-12] MEDS: TRANDATE 10 MG IV (09:11)
[2024-10-12] MEDS: ANESTHETIC LOZENGE 1 LOZENGE PO ×2 (10:40→19:58)
[2024-10-12 11:32] VITALS: BP 133/94
--- NOTE | 2024-10-12 12:11 | W.PN.HOSP.TC ---
Today's Communication/Plan
-
Continue phenobarbital taper. Antibiotics changed to oral. Discharge planning
Assessment / Plan
Assessment / Plan
Gen-sedated, NAD
HEENT-NC, AT, anicteric, clear oral mm
Neck-supple
CV-reg, no M, +S1/S2
Lungs-clear B/L
Abd-soft, NT, ND
Ext-no edema
Musculoskeletal-no cyanosis, clubbing
Neuro-alert oriented x 3 no gross neurological deficit but generalized weakness
Skin-warm and dry
A/P:
Alcohol/benzodiazepine withdrawal seizure -intubated in the emergency room for airway protection. Status post extubated on 10/10.
He was sedated on propofol fentanyl and Precedex. Started phenobarbital and cont taper. Continue thiamine and folic acid.
Appreciate neurology input. No indication for antiepileptics. Continue treating alcohol/benzodiazepine withdrawal syndrome.
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
Psychiatry following-psychiatry was entering the room when I was stepping out...
Elevated blood pressure, probably hypertension-started clonidine for both alcohol and benzo related issues and probably hypertension and IV labetalol as needed
Anion gap metabolic acidosis -present on admission. Improving.
Hypomagnesemia -present on admission. replete and trend
Acute hepatitis -suspect alcohol induced hepatitis. Present on admission. Discriminant function 12.5. No indication for steroids.
Severe alcohol use disorder -continue treating withdrawal symptoms. Continue thiamine and folic acid. Will need alcohol rehab on discharge. Psychiatry consulted.
Last drink of alcohol was 2 to 3 days prior to presentation.
Hyponatremia -present on admission. Improving.
Aspiration pneumonia-still febrile and procalcitonin moderately elevated, cont antibiotics of IV Unasyn and repeated cxr looks favorable so switch to oral antibiotics today
Chronic benzodiazepine dependence-Discussed possibility of Klonopin taper if needed but he'll think about this-at the moment he is off scheduled benzo's which seems a step in the right direction.
Anxiety/depression
Obesity due to excess calories
Full code
Mother updated at the bedside today 10/12.
Time spent 35 min
Anticipated Discharge: Within 24 hours
Subjective/Interval History
-
Date of Service: October 12, 2024
Patient denies any shortness of breath. He is more alert and conversant today. No chest pain. Less tremors and anxiety. Blood pressure and heart rate still rises at times. Afebrile
Objective Data
-
Labs:
Laboratory Results
10/12/24
07:20
WBC 7.7
Hgb 14.2
Hct 40.2
Plt Count 251 D
PT 13.4
INR 0.98
Sodium 133 L
Potassium 4.4
Chloride 98
Carbon Dioxide 23
BUN 7 L
Creatinine 0.5 L
Glucose 90
Calcium 9.6
Total Bilirubin 3.4 H
AST 181 H
ALT 84 H
Alkaline Phosphatase 55
Vital Signs:
Vital Signs
Temp Pulse Resp BP Pulse Ox
97.6 F 107 16 133/94 96
10/12/24 11:32 10/12/24 11:32 10/12/24 11:32 10/12/24 11:32 10/12/24 11:32
I&O
10/11/24 10/12/24 10/13/24
06:59 06:59 06:59
Intake Total 1314.1 / 1314.1 1440 / 1440
Output Total 845 / 845
Balance 469.1 / 469.1 1440 / 1440
[2024-10-12] MEDS: AUGMENTIN 875 MG/125 MG 1 TABLET PO ×2 (12:51→21:45)
--- NOTE | 2024-10-12 12:51 | W.PN.UPDATE ---
Update Note
Progress Note Update
patient seen chart reviewed. discussed with nursing. mother at bedside. the patient was very agreeable to talking about his substance abuse issues. we covered a lot of ground...the impact of alcohol on the body. he seemed unaware of the potential
damage he might sustain if he continues to drink despite seizing and requiring intubation on this admit. he expressed that he 'will not' drink when dc given his recent experience. i told him that his confidence is not a good sign. he needs to be
aware that he will CERTAINLY be tempted to drink and needs a plan for sobriety. leaving here full of confidence in his ability to stay sober will NOT stand him in good stead. he will be unprepared for temptation and will likely resume his drinking
etc. he could not tell me what the first step is in AA ie to admit you are powerless over alcohol which i explained to him along with why it is very relevant here. his mother mentioned that he has [place] insurance and that she was figuring out how to
transfer his MA to [place] so he could get help closer to home. he will be residing with her. she also spoke of her resolve to stop drinking and that there will be NO alcoholl in the home. will continue to follow patient and offer support. encouraged
him to consider some rx upon dc...if not in patient then a combination of iop and aa. blood pressure and pulse still on the high side. he is continuing w phenobarb taper. does not appear to be in any physical distress. will see him tomorrow
[2024-10-12 15:39] VITALS: BP 118/83
[2024-10-12 19:00] VITALS: BP 128/78
[2024-10-12] MEDS: LOVENOX SC (19:08)
[2024-10-12 23:00] VITALS: BP 124/74
[2024-10-13 03:00] VITALS: BP 140/103
[2024-10-13] MEDS: ANESTHETIC LOZENGE 1 LOZENGE PO ×2 (06:29→12:25)
[2024-10-13] MEDS: VITAMIN B1 100 MG PO (07:34)
[2024-10-13] MEDS: LUMINAL 64.8 MG PO (07:34)
[2024-10-13] MEDS: AUGMENTIN 875 MG/125 MG 1 TABLET PO (07:34)
[2024-10-13] MEDS: FOLVITE 1 MG PO (07:34)
[2024-10-13] MEDS: CATAPRES 0.1 MG PO (07:35)
[2024-10-13] MEDS: MIRALAX TUBE (07:35)
[2024-10-13 07:40] VITALS: BP 152/100
[2024-10-13 08:26] LABS: Triglycerides 192 mg/dl (10-149)
--- NOTE | 2024-10-13 08:36 | W.PN.HOSP.TC ---
Today's Communication/Plan
-
Discharge planning
Assessment / Plan
Assessment / Plan
Gen-sedated, NAD
HEENT-NC, AT, anicteric, clear oral mm
Neck-supple
CV-reg, no M, +S1/S2
Lungs-clear B/L
Abd-soft, NT, ND
Ext-no edema
Musculoskeletal-no cyanosis, clubbing
Neuro-alert oriented x 3 no gross neurological deficit
Skin-warm and dry
A/P:
Alcohol/benzodiazepine withdrawal seizure -intubated in the emergency room for airway protection. Status post extubated on 10/10.
He was sedated on propofol fentanyl and Precedex. Started phenobarbital and cont taper. Continue thiamine and folic acid.
Appreciate neurology input. No indication for antiepileptics. Continue treating alcohol/benzodiazepine withdrawal syndrome.
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
Psychiatry following-I discussed with psychiatry briefly about possible plan to discharge today we agree would strongly recommend inpatient rehab but patient declined and would like to try outpatient...
Elevated blood pressure, probably hypertension-started clonidine for both alcohol and benzo related issues and probably hypertension and IV labetalol as needed. Discussed final plan on clonidine and Norvasc.
Anion gap metabolic acidosis -present on admission. Improving.
Hypomagnesemia -present on admission. replete and trend
Acute hepatitis -suspect alcohol induced hepatitis. Present on admission. Discriminant function 12.5. No indication for steroids.
Severe alcohol use disorder -continue treating withdrawal symptoms. Continue thiamine and folic acid. Will need alcohol rehab on discharge. Psychiatry consulted.
Last drink of alcohol was 2 to 3 days prior to presentation.
Hyponatremia -present on admission. Improving.
Aspiration pneumonia-still febrile and procalcitonin moderately elevated, cont antibiotics of IV Unasyn and repeated cxr looks favorable so switch to oral antibiotics today
Chronic benzodiazepine dependence-Discussed possibility of Klonopin taper if needed but he'll think about this-at the moment he is off scheduled benzo's which seems a step in the right direction.
Anxiety/depression
Obesity due to excess calories
Full code
Mother updated at the bedside today 10/13.
Anticipated Discharge: Today
Subjective/Interval History
-
Date of Service: October 13, 2024
Patient feels well overall today. Blood pressure still on the high side but after medication improved.
Objective Data
-
Vital Signs:
Vital Signs
Temp Pulse Resp BP Pulse Ox
98.2 F 127 16 152/100 97
10/13/24 07:40 10/13/24 07:40 10/13/24 07:40 10/13/24 07:40 10/13/24 07:40
I&O
10/12/24 10/13/24 10/14/24
06:59 06:59 06:59
Intake Total 1440 / 1440 480 / 480
Balance 1440 / 1440 480 / 480
[2024-10-13 09:23] LABS: Blood Urea Nitrogen 9 mg/dl (9-20); Calcium 9.9 mg/dl (8.4-10.2); Carbon Dioxide 25 mmol/L (22-30); Chloride 99 mmol/L (98-107); Estimated Creatinine Clearance > 125 ml/min; Glucose 114 mg/dl (70-99); Magnesium 1.6 mg/dl (1.6-2.3); Potassium 4.3 mmol/L (3.5-5.1); Sodium 136 mmol/L (135-145); eGFR > 60.00
[2024-10-13] MEDS: NORVASC 5 MG PO (09:51)
[2024-10-13 09:55] VITALS: BP 134/91
[2024-10-13 11:33] VITALS: BP 136/95
--- NOTE | 2024-10-13 12:17 | W.DCSUMMARY ---
Discharge Summary
Discharge Data
Date of Admission: 10/07/24
Date of Discharge: 10/13/24
Total time spent discharging patient (in min): 35
-
Pending Results: No
Hospital Course
Patient 28 years old male with history of alcohol abuse and benzodiazepine dependence presented to the hospital with seizures. Patient was in severe alcohol withdrawal. He was placed on alcohol withdrawal protocol. Course complicated with
worsening withdrawal and seizures and patient required to be intubated. He was on mechanical ventilation and multiple sedatives in the ICU for several days. Acting Instructor and neurology evaluated the patient. Patient was able to be extubated.
Psychiatry evaluated the patient. Patient also had aspiration pneumonia and he was treated accordingly with antibiotics and he responded well. Patient is hemodynamically stable and afebrile and on room air. Patient is willing to go to outpatient
alcohol rehab but declined inpatient rehab. [facility] is following the patient closely. Patient's blood pressure was elevated in part due to his alcohol withdrawal but even after treatment blood pressure remained elevated so decided to treat him with
antihypertensives. He also was taken off benzodiazepines and did well the rest of the hospital stay. Neurology did not recommend any antiseizure medication upon discharge. Patient participated with physical therapy. Patient will be discharged in
stable condition today.
Discharge duration: 35 minutes
Discharge Plan
-
Patient Disposition: Home (Routine Discharge)
Discharge Diagnosis/Procedures: Severe alcohol withdrawal. Seizures related to alcohol withdrawal and benzodiazepines withdrawal. Aspiration pneumonia. Hypertension.
Diet: Low Cholesterol
Activity: As tolerated
Blood Work: Please PCP to order CBC, CMP within 1 week
Stand Alone Forms: Return to Work
Referrals:
Primary care provider [Other] - in less than 1 week
Patricio Torres MD [Active, Psychiatry] - in two to four weeks
Bran Leiva MD [Active, Neurology] - in one to two months
UNKNOWN - PT DOES,NOT KNOW [Family Provider]
Prescriptions:
New
clonidine HCl 0.1 mg Tablet
0.1 mg PO BID 30 Days Qty: 60 0RF
amlodipine 5 mg Tablet
5 mg PO DAILY 30 Days Qty: 30 0RF
amoxicillin-pot clavulanate 875-125 mg Tablet
1 tab PO Q12 5 Days Qty: 10 0RF
Discontinued
alprazolam [Xanax] 1 mg tablet
1 mg PO TID PRN (Reason: anxiety) Qty: 4 0RF
Discharge Orders:
Discharge Patient (As Directed); Ordered 10/13/24
Ordered By: Angelo Bryan
Discharge Date and Time
Discharge Date/Time: 10/13/24 15:16
Print Language: DANISH
--- NOTE | 2024-10-13 14:37 | W.PN.UPDATE ---
Update Note
Progress Note Update
patient seen chart reviewed. discussed with nursing and with cm. mother at bedside. the patient is to be dc today. he continues to feel he does not need to go to in pt rehab although i have explained to him repeatedly that the stakes are high here
and he should consider as staying sober will not be easy. we discussed a practical plan to help him....he will need a plan to resist the urge to drink which WILL occur whether he thinks so or not. he is to get an index card and list ten things he
can do when faced with the urge to drink. they will need to be things he commits to do which are relatively easy to do. discussed some suggestions. he needs to get to AA and get a sponsor. his mom has set up an app[facility]
wed[facility]. NO ETOH in the home. he told me he is confident he can be sober. confidence is not necessarily predictive...he should actually be anxious that it may be hard so he takes steps to help himself. he is going to wear his dh bracelet to
remind himself of what he needs to do which is sort of a + no psych meds at present.
[2024-10-13 14:45] VITALS: BP 143/101
--- NOTE | 2024-10-13 15:08 | CM ---
Spoke with Psych who stated that patient has been medically cleared for discharge. He stated that he has [facility] information and plans to start a program when he gets home. Patient's mother at bedside and will take him home.
Plan: Case management will continue to follow and assist with discharge planning. Patient home with outpatient rehab.
== END 2024-10-13 15:16 | disposition home or self-care (01) | DRG 896 ==
LOC: 4 WEST ACU 23:51
PROVIDERS: Emergency Medicine; Hospitalist; Internal Medicine; Nurse Practitioner Family; ADMITTING PHYSICIAN Hospitalist; ATTENDING PHYSICIAN Hospitalist; CONSULT PHYSICIAN Internal Medicine Critical Care Medicine; CONSULT PHYSICIAN Psychiatry & Neurology Clinical Neurophysiology; EMERGENCY PHYSICIAN Student in an Organized Health Care Education/Training Program
PROC: 5A1945Z Respiratory Ventilation, 24-96 Consecutive Hours (ICD-10-PCS; 2024-10-08)
DX: F10.239 Alcohol dependence with withdrawal, unspecified (principal); J69.0 Pneumonitis due to inhalation of food and vomit; E87.1 Hypo-osmolality and hyponatremia; G40.901 Epilepsy, unspecified, not intractable, with status epilepticus; F13.239 Sedative, hypnotic or anxiolytic dependence with withdrawal, unspecified; I10 Essential (primary) hypertension; F32.A Depression, unspecified; F41.9 Anxiety disorder, unspecified; E83.42 Hypomagnesemia; E66.09 Other obesity due to excess calories; Z68.31 Body mass index [BMI] 31.0-31.9, adult; Z80.1 Family history of malignant neoplasm of trachea, bronchus and lung
CPT/HCPCS: 31500; 36600; 70450; 71045; 71046; 80048; 80053; 80076; 80306; 80307; 81003; 81015; 82077; 82805; 82962; 83735; 84100; 84145; 84443; 84478; 85025; 85027; 85610; 85730; 93005; 94002; 94003; 96365; 96374; 96375; 97161; 99152; 99291